=== PATIENT | male | born 1960 | race Caucasian/White ===

== ENCOUNTER 2018-03-12 01:57 | Inpatient (IN) | payer SELFPAY ==
[~2018-03-12] VITALS: Ht 185.4 cm; Wt 80.2 kg
[~2018-03-12 01:57] MED LIST: AMLO5 PO; AMOCLA500 PO; ASPI325 PO; BENZ100A PO; BUPR75 PO; CALC.25 PO; Esgic Tablet1 EACH PO; FURO20 PO; GABA100 PO; Glucagon Emergen1 MG IJ; HUMALOG INSULIN PUMP; HYDACE5 PO; HYDCHL12.5 PO; Humalog100 UNIT/1; INSDET100 SC; INSR10I SC; INSULANI; INSULANI SC; INSULANPEN SC; LISHYD2025 PO; LISI5; LORA1 PO; LOSA25 PO; LOSARTAN POTAS100 MG PO; METH5; METO25 PO; METO5A PO; NIFE60ER PO; OMEP20ER PO; Omeprazole20 M1; PANT40 PO; TRAM50 PO; Vitamin D2000 UNIT PO; Zofran Odt4 MG SL; [UNRECOGNIZED DRUG - SUPPLY] MC
[2018-03-12] MEDS ORDERED: ATOR40TA PO (02:25)
[2018-03-12] MEDS ORDERED: CHOL10002 PO (02:26)
[2018-03-12] MEDS ORDERED: CLOP75 PO (02:26)
[2018-03-12] MEDS ORDERED: FURO20 PO (02:27)
[2018-03-12] MEDS ORDERED: ERGO400 PO (02:27)
[2018-03-12] MEDS ORDERED: Novolog100 UNIT/1 UD (02:28)
[2018-03-12] MEDS ORDERED: LOSA50 PO (02:28)
[2018-03-12] MEDS ORDERED: MECL12.5 PO (02:28)
[2018-03-12] MEDS ORDERED: ONDA4ODT MM (02:29)
[2018-03-12] MEDS ORDERED: NIFE60ER PO (02:29)
[2018-03-12] MEDS ORDERED: METO25 PO (02:29)
[2018-03-12] MEDS ORDERED: PANT40 PO (02:30)
[2018-03-12] MEDS ORDERED: TRAM50 PO (02:30)
[2018-03-12 02:32] LABS: BASOPHILS ABSOLUTE AUTO 0.01 K/mm3 (0.00-0.23); BASOPHILS PERCENT AUTO 0 % (0-2); EOSINOPHILS ABSOLUTE AUTO 0.02 K/mm3 (0.00-0.68); EOSINOPHILS PERCENT AUTO 0 % (0-6); Hematocrit 25.2 % (37.0-53.0); Hemoglobin 8.4 g/dL (13.5-17.5); IMMATURE GRAN ABSOLUTE AUTO 0.04 K/mm3 (0.00-0.10); IMMATURE GRAN PERCENT AUTO 1 % (0-1); LYMPHOCYTES ABSOLUTE AUTO 0.54 K/mm3 (0.84-5.20); LYMPHOCYTES PERCENT AUTO 8 % (21-46); MONOCYTES ABSOLUTE AUTO 0.39 K/mm3 (0.16-1.47); MONOCYTES PERCENT AUTO 6 % (4-13); Mean Corpuscular HGB 30.8 pg (26.0-34.0); Mean Corpuscular HGB Conc 33.3 g/dL (31.5-36.5); Mean Corpuscular Volume 92 fL (80-100); NEUTROPHILS ABSOLUTE AUTO 5.55 K/mm3 (1.96-9.15); NEUTROPHILS PERCENT AUTO 85 % (41-73); Platelet Count 245 K/mm3 (150-400); RDW Coefficient Variation 13.7 % (11.7-14.2); RDW Standard Deviation 46.3 fL (35.1-46.3); Red Blood Cell Count 2.73 M/mm3 (4.30-5.90); White Blood Cell Count 6.55 K/mm3 (4.00-11.30)
[2018-03-12 02:55] LABS: Alanine Aminotransfer (ALT/SGP 39 U/L (12-78); Albumin, Blood 2.7 g/dL (3.4-5.0); Albumin/Globulin Ratio 0.8 (0.8-1.8); Alk Phos 176 U/L (50-136); Anion Gap 19 mmol/L (6-16); Aspartate Aminotrans (AST/SGOT 36 U/L (12-37); Bilirubin, Total 0.4 mg/dL (0.1-1.0); Blood Urea Nitrogen 69 mg/dL (8-24); Bun/Creatinine Ratio 19.5 (12.0-20.0); CO2, Blood 15 mmol/L (21-32); Calcium, Blood 7.3 mg/dL (8.5-10.1); Chloride, Blood 92 mmol/L (98-108); Creatinine, Blood 3.53 mg/dL (0.60-1.20); Globulin, Blood 3.3 g/dL (2.2-4.0); Glomerular Filtration Rate 19 (60-); Glucose, Blood 1087 mg/dL (70-99); Potassium, Blood 5.1 mmol/L (3.5-5.5); Sodium, Blood 126 mmol/L (136-145)
[2018-03-12 03:46] LABS: PCO2 Venous 36.1 mmHg (38-42); PO2 Venous 85.4 mmHg (38-42); pH Blood Venous 7.23 (7.34-7.37)
[2018-03-12 03:47] LABS: Base Excess Venous -12.4 mmol/L; Bicarbonate Venous 15.3 mmol/L (24.0-30.0)
[2018-03-12 04:02] LABS: Phosphorus, Blood 3.4 mg/dL (2.5-4.9); Troponin I <0.015 ng/mL (0.000-0.040)
[2018-03-12 05:49] LABS: Potassium, Blood 4.7 mmol/L (3.5-5.5)
[2018-03-12 06:25] LABS: Potassium, Blood 4.6 mmol/L (3.5-5.5)
[2018-03-12 06:35] LABS: Glucose, Blood 800 mg/dL (70-99)
[2018-03-12 07:17] LABS: Glucose, Blood 896 mg/dL (70-99)
[2018-03-12 07:58] LABS: Glucose, Blood 740 mg/dL (70-99)
[2018-03-12 09:06] LABS: Potassium, Blood 4.2 mmol/L (3.5-5.5)
[2018-03-12 09:30] LABS: Glucose, Blood 669 mg/dL (70-99)
[2018-03-12 11:16] LABS: Potassium, Blood 3.9 mmol/L (3.5-5.5)
[2018-03-12 11:24] LABS: Glucose, Blood 598 mg/dL (70-99)
[2018-03-12 15:05] LABS: Bun/Creatinine Ratio 18.2 (12.0-20.0); Calcium, Blood 7.3 mg/dL (8.5-10.1); Creatinine, Blood 3.35 mg/dL (0.60-1.20)
[2018-03-12 17:59] LABS: Creatinine, Urine Random 34.1 mg/dL (27.00-270.00); Protein, Urine Random 183.3 mg/dL (0.0-11.9)
[2018-03-12 18:06] LABS: Albumin, Blood 2.1 g/dL (3.4-5.0); Anion Gap 10 mmol/L (6-16); Blood Urea Nitrogen 58 mg/dL (8-24); Bun/Creatinine Ratio 17.5 (12.0-20.0); CO2, Blood 21 mmol/L (21-32); Calcium, Blood 7.5 mg/dL (8.5-10.1); Chloride, Blood 111 mmol/L (98-108); Creatinine, Blood 3.32 mg/dL (0.60-1.20); Glomerular Filtration Rate 21 (60-); Glucose, Blood 151 mg/dL (70-99); Potassium, Blood 3.8 mmol/L (3.5-5.5); Sodium, Blood 142 mmol/L (136-145)
[2018-03-13 04:27] LABS: Bicarbonate Venous 21.1 mmol/L (24.0-30.0); PCO2 Venous 38.4 mmHg (38-42); PO2 Venous 40.3 mmHg (38-42); pH Blood Venous 7.36 (7.34-7.37)
[2018-03-13 05:13] LABS: BASOPHILS ABSOLUTE AUTO 0.03 K/mm3 (0.00-0.23); BASOPHILS PERCENT AUTO 0 % (0-2); EOSINOPHILS ABSOLUTE AUTO 0.37 K/mm3 (0.00-0.68); EOSINOPHILS PERCENT AUTO 4 % (0-6); Hematocrit 21.6 % (37.0-53.0); Hemoglobin 7.4 g/dL (13.5-17.5); IMMATURE GRAN ABSOLUTE AUTO 0.04 K/mm3 (0.00-0.10); IMMATURE GRAN PERCENT AUTO 0 % (0-1); LYMPHOCYTES ABSOLUTE AUTO 2.35 K/mm3 (0.84-5.20); LYMPHOCYTES PERCENT AUTO 26 % (21-46); MONOCYTES PERCENT AUTO 8 % (4-13); Mean Corpuscular HGB 29.8 pg (26.0-34.0); Mean Corpuscular HGB Conc 34.3 g/dL (31.5-36.5); Mean Platelet Volume 10.6 fL (9.1-12.4); NEUTROPHILS ABSOLUTE AUTO 5.67 K/mm3 (1.96-9.15); NEUTROPHILS PERCENT AUTO 62 % (41-73); Platelet Count 256 K/mm3 (150-400); RDW Coefficient Variation 14.2 % (11.7-14.2); RDW Standard Deviation 44.5 fL (35.1-46.3); Red Blood Cell Count 2.48 M/mm3 (4.30-5.90); White Blood Cell Count 9.16 K/mm3 (4.00-11.30)
[2018-03-13 05:15] LABS: Mean Corpuscular Volume 87 fL (80-100)
[2018-03-13 05:32] LABS: Anion Gap 8 mmol/L (6-16); Blood Urea Nitrogen 54 mg/dL (8-24); Bun/Creatinine Ratio 16.6 (12.0-20.0); CO2, Blood 22 mmol/L (21-32); Calcium, Blood 7.4 mg/dL (8.5-10.1); Chloride, Blood 112 mmol/L (98-108); Creatinine, Blood 3.26 mg/dL (0.60-1.20); Glomerular Filtration Rate 21 (60-); Glucose, Blood 183 mg/dL (70-99); Magnesium, Blood 1.6 mg/dL (1.6-2.4); Phosphorus, Blood 3.1 mg/dL (2.5-4.9); Potassium, Blood 4.2 mmol/L (3.5-5.5); Sodium, Blood 142 mmol/L (136-145)
[2018-03-13 11:21] LABS: Percent Saturation 24.5 % (20.0-50.0)
[2018-03-14 04:58] LABS: BASOPHILS ABSOLUTE AUTO 0.02 K/mm3 (0.00-0.23); BASOPHILS PERCENT AUTO 0 % (0-2); EOSINOPHILS ABSOLUTE AUTO 0.45 K/mm3 (0.00-0.68); EOSINOPHILS PERCENT AUTO 8 % (0-6); Hematocrit 23.1 % (37.0-53.0); IMMATURE GRAN ABSOLUTE AUTO 0.01 K/mm3 (0.00-0.10); IMMATURE GRAN PERCENT AUTO 0 % (0-1); LYMPHOCYTES ABSOLUTE AUTO 1.86 K/mm3 (0.84-5.20); LYMPHOCYTES PERCENT AUTO 32 % (21-46); MONOCYTES ABSOLUTE AUTO 0.56 K/mm3 (0.16-1.47); MONOCYTES PERCENT AUTO 10 % (4-13); Mean Corpuscular HGB 30.1 pg (26.0-34.0); Mean Corpuscular HGB Conc 34.6 g/dL (31.5-36.5); Mean Corpuscular Volume 87 fL (80-100); Mean Platelet Volume 10.3 fL (9.1-12.4); NEUTROPHILS ABSOLUTE AUTO 2.91 K/mm3 (1.96-9.15); NEUTROPHILS PERCENT AUTO 50 % (41-73); Platelet Count 239 K/mm3 (150-400); RDW Coefficient Variation 14.5 % (11.7-14.2); RDW Standard Deviation 46.1 fL (35.1-46.3); Red Blood Cell Count 2.66 M/mm3 (4.30-5.90); White Blood Cell Count 5.81 K/mm3 (4.00-11.30)
[2018-03-14 05:32] LABS: Bun/Creatinine Ratio 15.2 (12.0-20.0); Calcium, Blood 7.4 mg/dL (8.5-10.1); Creatinine, Blood 2.7 mg/dL (0.60-1.20); Potassium, Blood 3.9 mmol/L (3.5-5.5)
[2018-03-14] MEDS ORDERED: INSULANPEN SC (13:09)
[2018-03-14] MEDS ORDERED: Prozac20 MG PO (13:10)
[2018-03-14] MEDS ORDERED: HUMALOG JU100 UNIT/1 SC (13:11)
[2018-03-14] MEDS ORDERED: TAMS.4ER PO (13:11)
[2018-03-14 15:11] LABS: Protein, Urine Quantitative 354.2 mg/dL (0.0-11.9)
[2018-03-18 15:09] LABS: A/G RATIO 1.4 (0.7-1.7); ALBUMIN 2.5 g/dL (2.9-4.4); ALPHA-1-GLOBULIN 0.1 g/dL (0.0-0.4); ALPHA-2-GLOBULIN 0.4 g/dL (0.4-1.0); BETA GLOBULIN 0.6 g/dL (0.7-1.3); GAMMA GLOBULIN 0.8 g/dL (0.4-1.8); GLOBULIN, TOTAL 1.9 g/dL (2.2-3.9); IMMUNOGLOBULIN A, QN, SERUM 117 mg/dL (90-386); IMMUNOGLOBULIN G, QN, SERUM 835 mg/dL (700-1600); IMMUNOGLOBULIN M, QN, SERUM 64 mg/dL (20-172); M-SPIKE Not Observed g/dL (Not Observed); PROTEIN, TOTAL, SERUM 4.4 g/dL (6.0-8.5)
== END 2018-03-14 15:53 | disposition home or self-care (01) | DRG 919 ==
LOC: ER 01:57 → ICUW 01:58 → ICUE 01:58 → MEDS 03-13 17:19 → ENPENDDIS 03-14 12:30 → MEDS 03-14 15:53
PROVIDERS: Emergency Medicine; Internal Medicine
DX: T85.694A Other mechanical complication of insulin pump, initial encounter (principal); E10.10 Type 1 diabetes mellitus with ketoacidosis without coma; N17.9 Acute kidney failure, unspecified; I12.0 Hypertensive chronic kidney disease with stage 5 chronic kidney disease or end stage renal disease; E87.1 Hypo-osmolality and hyponatremia; N18.5 Chronic kidney disease, stage 5; N13.30 Unspecified hydronephrosis; E11.22 Type 2 diabetes mellitus with diabetic chronic kidney disease; D63.8 Anemia in other chronic diseases classified elsewhere; E55.9 Vitamin D deficiency, unspecified; Z91.19 Patient's noncompliance with other medical treatment and regimen; R33.9 Retention of urine, unspecified; Z86.73 Personal history of transient ischemic attack (TIA), and cerebral infarction without residual deficits; F32.9 Major depressive disorder, single episode, unspecified; E87.5 Hyperkalemia; K21.9 Gastro-esophageal reflux disease without esophagitis; N40.0 Benign prostatic hyperplasia without lower urinary tract symptoms
CPT/HCPCS: 36415; 51702; 76770; 80048; 80051; 80053; 80069; 82010; 82306; 82570; 82607; 82728; 82746; 82784; 82803; 82947; 83540; 83550; 83735; 83970; 84100; 84156; 84165; 84484; 85025; 86334; 93005; 93010; 96360; 99285-25; C9113; J0881; J1815; J7030; J7042

== ENCOUNTER 2018-08-26 10:22 | Inpatient (IN) | payer OTHER ==
[~2018-08-26] VITALS: Ht 185.4 cm; Wt 76.1 kg
[~2018-08-26 10:22] MED LIST changes: +ATOR40TA PO; +CHOL10002 PO; +CLOP75 PO; +ERGO400 PO; +HUMALOG JU100 UNIT/1 SC; +LOSA50 PO; +MECL12.5 PO; +Novolog100 UNIT/1 UD; +ONDA4ODT MM; +Prozac20 MG PO; +TAMS.4ER PO
[2018-08-26] MEDS ORDERED: FURO20 PO (10:38)
[2018-08-26 11:00] LABS: Calcium, Ionized (POC) 1.06 mmol/L (1.10-1.46); Chloride (POC) 110 mmol/L (98-108); Creatinine (POC) 3.8 mg/dL (0.8-1.3); Glucose (ISTAT POC) 118 mg/dL (70-99); Hemoglobin (POC) 9.5 g/dL (13.5-17.5); Sodium (POC) 141 mmol/L (135-148); Total CO2 (POC) 23 mmol/L (21-32)
[2018-08-26] MEDS ORDERED: Ferrous Sulfat325 M2 PO (11:01)
[2018-08-26 13:19] LABS: Hematocrit 29.2 % (37.0-53.0); Hemoglobin 9.5 g/dL (13.5-17.5); Mean Corpuscular HGB 30.8 pg (26.0-34.0); Mean Corpuscular HGB Conc 32.5 g/dL (31.5-36.5); Mean Corpuscular Volume 95 fL (80-100); Platelet Count 218 K/mm3 (150-400); RDW Coefficient Variation 15.4 % (11.7-14.2); RDW Standard Deviation 52.8 fL (35.1-46.3); Red Blood Cell Count 3.08 M/mm3 (4.30-5.90); White Blood Cell Count 5.94 K/mm3 (4.00-11.30)
[2018-08-26 13:41] LABS: Albumin, Blood 2.8 g/dL (3.4-5.0); Anion Gap 6 mmol/L (6-16); Blood Urea Nitrogen 44 mg/dL (8-24); Bun/Creatinine Ratio 11.3 (12.0-20.0); CO2, Blood 24 mmol/L (21-32); Calcium, Blood 7.6 mg/dL (8.5-10.1); Chloride, Blood 114 mmol/L (98-108); Glomerular Filtration Rate 17 (60-); Glucose, Blood 124 mg/dL (70-99); Phosphorus, Blood 3.1 mg/dL (2.5-4.9); Potassium, Blood 4.8 mmol/L (3.5-5.5); Sodium, Blood 144 mmol/L (136-145)
[2018-08-26 14:15] LABS: BASOPHILS PERCENT MAN 0 % (0-2); EOSINOPHILS PERCENT MAN 0 % (0-6); LYMPHOCYTES ABSOLUTE MAN 0.35 K/mm3 (0.84-5.20); LYMPHOCYTES PERCENT MAN 6 % (21-46); MONOCYTES ABSOLUTE MAN 0.23 K/mm3 (0.16-1.47); MONOCYTES PERCENT MAN 4 % (4-13); NEUTROPHILS ABSOLUTE MAN 5.34 K/mm3 (1.96-9.15); SEG NEUTROPHILS PERCENT MAN 90 % (41-73); TOTAL CELLS COUNTED 100
--- NOTE | 2018-08-26 18:18 | NUR ---
SHIFT SUMMARY LOY ARRIVED AT 1245 FROM ED. VSS, SLIGHT TEMP AT 100.3 WITH TYLENOL GIVEN. PT DENIES PAIN BUT SAYS HIS BODY ACHES ALL OVER A BIT. MIVF RUNNING, DR ALARCON CAME TO BEDSIDE. RENAL ULTRASOUND COMPLETED. INDEPENDENT TO BR. FAMILY VISITED. IMPLANTED CBG AND INSULIN PUMP, PER DR BAHENA, WE DON'T NEED TO CHECK CBGS OR DOCUMENT HOW MUCH INSULIN HE DELIVERS WITH HIS MEALS. WCTM
[2018-08-27 05:16] LABS: Hematocrit 29.7 % (37.0-53.0); Hemoglobin 9.6 g/dL (13.5-17.5); Mean Corpuscular HGB 30.9 pg (26.0-34.0); Mean Corpuscular HGB Conc 32.3 g/dL (31.5-36.5); Mean Corpuscular Volume 96 fL (80-100); Platelet Count 194 K/mm3 (150-400); RDW Coefficient Variation 15.2 % (11.7-14.2); RDW Standard Deviation 52.8 fL (35.1-46.3); Red Blood Cell Count 3.11 M/mm3 (4.30-5.90); White Blood Cell Count 4.67 K/mm3 (4.00-11.30)
[2018-08-27 05:40] LABS: Magnesium, Blood 1.9 mg/dL (1.6-2.4)
[2018-08-27 05:44] LABS: Albumin, Blood 2.7 g/dL (3.4-5.0); Anion Gap 4 mmol/L (6-16); Blood Urea Nitrogen 49 mg/dL (8-24); Bun/Creatinine Ratio 11.6 (12.0-20.0); CO2, Blood 25 mmol/L (21-32); Calcium, Blood 7.5 mg/dL (8.5-10.1); Chloride, Blood 114 mmol/L (98-108); Creatinine, Blood 4.24 mg/dL (0.60-1.20); Glomerular Filtration Rate 15 (60-); Glucose, Blood 75 mg/dL (70-99); Phosphorus, Blood 2.7 mg/dL (2.5-4.9); Potassium, Blood 5.2 mmol/L (3.5-5.5); Sodium, Blood 143 mmol/L (136-145)
--- NOTE | 2018-08-27 07:21 | NUR ---
SHIFT SUMMARY: PT A&O X 4, INDEPENDENT IN ROOM. C/O BODY ACHES, COUGH, AND CONGESTION. DENIES N/V, SOB. PT IS MANAGING OWN INSULIN AND CBG c IMPLANTED PUMP PER DR. HERNANDEZ VERBAL CONSENT. NS RUNNING @ 100 ML/HR, PT IS VOIDING WNL. C/O DECREASE APPETITE AND IS EATING JUST JELL-O TONIGHT. WILL CONT TO MONITOR AND PROVIDE CARE UNTIL PRESUMED BY ONCOMING RN.
[2018-08-28 05:06] LABS: BASOPHILS ABSOLUTE AUTO 0.02 K/mm3 (0.00-0.23); BASOPHILS PERCENT AUTO 1 % (0-2); EOSINOPHILS ABSOLUTE AUTO 0.01 K/mm3 (0.00-0.68); EOSINOPHILS PERCENT AUTO 0 % (0-6); Hematocrit 27.6 % (37.0-53.0); Hemoglobin 8.8 g/dL (13.5-17.5); IMMATURE GRAN PERCENT AUTO 0 % (0-1); LYMPHOCYTES ABSOLUTE AUTO 1.71 K/mm3 (0.84-5.20); LYMPHOCYTES PERCENT AUTO 50 % (21-46); MONOCYTES ABSOLUTE AUTO 0.85 K/mm3 (0.16-1.47); MONOCYTES PERCENT AUTO 25 % (4-13); Mean Corpuscular HGB Conc 31.9 g/dL (31.5-36.5); Mean Corpuscular Volume 94 fL (80-100); NEUTROPHILS ABSOLUTE AUTO 0.83 K/mm3 (1.96-9.15); NEUTROPHILS PERCENT AUTO 24 % (41-73); Platelet Count 162 K/mm3 (150-400); RDW Coefficient Variation 15.2 % (11.7-14.2); RDW Standard Deviation 52.7 fL (35.1-46.3); Red Blood Cell Count 2.93 M/mm3 (4.30-5.90); White Blood Cell Count 3.42 K/mm3 (4.00-11.30)
[2018-08-28 05:30] LABS: Albumin, Blood 2.2 g/dL (3.4-5.0); Anion Gap 6 mmol/L (6-16); Blood Urea Nitrogen 52 mg/dL (8-24); Bun/Creatinine Ratio 12.7 (12.0-20.0); CO2, Blood 22 mmol/L (21-32); Calcium, Blood 7.1 mg/dL (8.5-10.1); Chloride, Blood 112 mmol/L (98-108); Glomerular Filtration Rate 16 (60-); Glucose, Blood 138 mg/dL (70-99); Magnesium, Blood 1.9 mg/dL (1.6-2.4); Phosphorus, Blood 4.1 mg/dL (2.5-4.9); Potassium, Blood 4.7 mmol/L (3.5-5.5); Sodium, Blood 140 mmol/L (136-145)
--- NOTE | 2018-08-28 06:01 | NUR ---
HYPERTENSION PT HAS HIGH BP WITH THIS AM VITAL SIGNS OF 187/97. CALLED DOC FOR PRN BP MED. DOC ORDERED IV HYDRALAZINE 10MG Q6H PRN FOR SBP >160. ADMINISTERED TO PT. RECHECK THIRTY MINUTES LATER REVEALS BP 142/78.
--- NOTE | 2018-08-28 07:38 | NUR ---
SHIFT SUMMARY: PT HAS HIGH TEMP THIS SHIFT OF 101.3, RESPONDS WELL TO 650 MG PRN TYLENOL. TEMP LOWERS TO 98.3. [address], ALL URINE COLLECTED APPROPRIATELY SINCE 08/27/18 @ 1030. PT EXPERIENCES HIGH BP THIS SHIFT, PRN HYDRALAZINE ORDERED (SEE PRIOR NOTE). LAST BP DOWN TO 142/78. RENAL LABS THIS AM SHOW LITTLE TO NO IMPROVEMENT IN RENAL FUNCTION. NS @ 125 ML/HR IN 20G IN R. A/C CONT. PT MANAGING OWN INSULIN c IMPLANTED PUMP, PER DR. HERNANDEZ ORDERS. DENIES PAIN, DENIES N/V, LS DIM, TOLERATES RA. INDEPENDENT IN ROOM, PREFERS TO BE LEFT ALONE/WITHDRAWN. NO OTHER ACUTE CHANGES TO REPORT. WILL CONT TO MONITOR AND PROVIDE CARE UNTIL PRESUMED BY ONCOMING RN.
--- NOTE | 2018-08-28 18:36 | NUR ---
SHIFT SUMMARY PT HAD NO ACUTE CHANGES THIS SHIFT, NO COMPLAINTS OF ANY KIND. 24 HR URINE WAS RESTARTED THIS SHIFT D/T 2 VOIDS DUMPED, WILL COMPLETE 08/29 @ 1400. PT IS BEDRESTING AT THIS TIME, WILL CONT TO MONITOR UNTIL REPORT GIVEN TO TYLER RN.
--- NOTE | 2018-08-29 05:18 | NUR ---
SHIFT SUMMARY A/O X4, ABLE TO MAKE NEEDS KNOWN. COOPERATIVE WITH CARE. CALLS AND ANSWERS QUESTIONS APPROPRIATELY. NO C/O PAIN/DISCOMFORT. C/O NAUSEA; MEDICATED PER EMAR. SLIGHT TEMPERATURE THIS AM @ 99.3, BUT APPEARS ON TREND WITH PREVIOUS. HYPERTENSION NOTED THIS AM; WILL ADMINISTER PRN HYDRALAZINE. REMAINS INDEPENDENT IN ROOM. 24 HOUR URINE SAMPLE STILL COLLECTING. REMAINS ON IV FLUIDS NS 100 ML/HR WITHOUT COMPLICATION. NO OTHER ACUTE CHANGES NOTED. BED IN LOWEST POSITION. CALL LIGHT AND BELONGINGS WITHIN REACH. WCTM. REPORT TO ONCOMING RN.
[2018-08-29 05:21] LABS: Hematocrit 28.6 % (37.0-53.0); Hemoglobin 9.2 g/dL (13.5-17.5)
[2018-08-29 05:44] LABS: Albumin, Blood 2.2 g/dL (3.4-5.0); Anion Gap 5 mmol/L (6-16); Blood Urea Nitrogen 50 mg/dL (8-24); Bun/Creatinine Ratio 13.2 (12.0-20.0); CO2, Blood 22 mmol/L (21-32); Calcium, Blood 6.9 mg/dL (8.5-10.1); Chloride, Blood 111 mmol/L (98-108); Glomerular Filtration Rate 18 (60-); Glucose, Blood 114 mg/dL (70-99); Magnesium, Blood 1.7 mg/dL (1.6-2.4); Phosphorus, Blood 3.8 mg/dL (2.5-4.9); Potassium, Blood 4.9 mmol/L (3.5-5.5); Sodium, Blood 138 mmol/L (136-145)
--- NOTE | 2018-08-29 09:25 | NUR ---
IV SITE PT'S IV TO THE R AC IS A FIELD START, PT DECLINED TO HAVE A NEW ONE PLACED AT THIS TIME, PT REPORTS NAUSEA AND GENERAL MALAISE RELATED TO THE FLU
[2018-08-29 14:34] LABS: Protein, Urine Quantitative 354.7 mg/dL (0.0-11.9)
--- NOTE | 2018-08-29 18:13 | NUR ---
SUMMARY PT SITTING UP IN BED EATING HIS DINNER, PT HAS BEEN INDEPENDENT IN THE ROOM, IS PLEASANT AND COOPERATIVE WITH CARE, HAS DECLINED ANY TYLENOL OR OTHER PAIN MEDICATION, REQUESTS THE DOOR BE SHUT FOR QUIET, SPOUSE HAS BEEN IN TO VISIT, NO ACUTE CHANGES, WILL CONT TO MONITOR
[2018-08-30 05:26] LABS: Albumin, Blood 2.1 g/dL (3.4-5.0); Anion Gap 9 mmol/L (6-16); Blood Urea Nitrogen 49 mg/dL (8-24); Bun/Creatinine Ratio 12.9 (12.0-20.0); CO2, Blood 18 mmol/L (21-32); Calcium, Blood 6.8 mg/dL (8.5-10.1); Chloride, Blood 112 mmol/L (98-108); Glomerular Filtration Rate 18 (60-); Glucose, Blood 158 mg/dL (70-99); Phosphorus, Blood 3.8 mg/dL (2.5-4.9); Potassium, Blood 4.9 mmol/L (3.5-5.5); Sodium, Blood 139 mmol/L (136-145)
--- NOTE | 2018-08-30 05:27 | NUR ---
SHIFT SUMMARY A/O X4, ABLE TO MAKE NEEDS KNOWN. COOPERATIVE WITH CARE. CALLS AND ANSWERS QUESTIONS APPROPRIATELY. NO C/O PAIN/DISCOMFORT. NO N/V/D NOTED. HYPERTENSIVE THIS AM; WILL MEDICATED PER EMAR. REMAINS INDEPENDENT IN ROOM. APPEARED TO REST MUCH OF SHIFT. NO OTHER ACUTE CHANGES NOTED OVERNIGHT. BED IN LOWEST POSITION. CALL LIGHT AND BELONGINGS WITHIN REACH. WCTM. REPORT TO ONCOMING RN.
--- NOTE | 2018-08-30 17:28 | NUR ---
SUMMARY PT RESTING QUIETLY IN BED, WAKES EASILY, INDEPENDENT IN THE ROOM, SPOUSE HAS BEEN IN TO VISIT AND REPORTS THE PT'S FLAT AFFECT IS HIS BASELINE, PT HAS DECLINED ANY PAIN MEDICATION T/O THE DAY, VSS, NO ACUTE CHANGES, WILL CONTINUE TO MONITOR
--- NOTE | 2018-08-31 08:04 | NUR ---
Rn summary: Patient is alert and oriented. Pt is pale and states he just doesnt feel well. Pt has insulin pump he takes care of. Pt had crackles in R base. Pt states he feels bloated this evening. Active bowel tones, states he gets some on and off again nausia. Pt was able to rest on and off. He has a cough that is harsh but non productive. Cough med given but he states it is ineffective. Pt is up independantly in room. IV fluids continue. Pt is pleasant but quiet. Call light in reach. Will continue to monitor, report to day sift SIM Cohen.
[2018-08-31 11:22] LABS: Bun/Creatinine Ratio 12.6 (12.0-20.0); Creatinine, Blood 3.72 mg/dL (0.60-1.20); Potassium, Blood 4.9 mmol/L (3.5-5.5)
[2018-08-31] MEDS ORDERED: ROBITUSSIN COU237 ML PO (15:00)
[2018-08-31] MEDS ORDERED: AZIT500 PO (15:01)
[2018-08-31] MEDS ORDERED: HYDR10 PO (15:01)
--- NOTE | 2018-08-31 15:24 | NUR ---
PATIENT DISCHARGE THE PATIENT WAS DISCHARGED HOME WITH HIS , AFTER DISCHARGE INSTRUCTIONS WERE GIVEN TO THE PATIENT. THE PATIENT WAS INSTRUCTED TO IT DESKTOP SUPPORT TECHNICIAN AND TAKE THE PRESCRIPTIONS THAT WERE AT THE [facility] FOR HIM AND TO TAKE THEM DIRECTED. THE IS ALSO TO FOLLOW UP WITH HIS PCP WITHIN TWO WEEKS. THE PATIENT WAS FEELING AND DOING WELL, EATING AND WALKING THE HALLS WITH OUT TROUBLE. WHEN HIS ARRIVED TO PICK HIM UP, SHE WAS COMPLAINING FROM [place] TO THE TIME SHE LEFT THE MENDEZ. THE PATIENT STARTED COUGHING SOON SHE STARTED COMPLAINING.
== END 2018-08-31 15:22 | disposition home or self-care (01) | DRG 684 ==
LOC: ER 10:22 → MEDS 10:23
PROVIDERS: Emergency Medicine; Internal Medicine; Internal Medicine Nephrology; ADMIT Internal Medicine
DX: N17.9 Acute kidney failure, unspecified (principal); E10.22 Type 1 diabetes mellitus with diabetic chronic kidney disease; E10.319 Type 1 diabetes mellitus with unspecified diabetic retinopathy without macular edema; G47.33 Obstructive sleep apnea (adult) (pediatric); N18.4 Chronic kidney disease, stage 4 (severe); D63.1 Anemia in chronic kidney disease; E10.42 Type 1 diabetes mellitus with diabetic polyneuropathy; N25.81 Secondary hyperparathyroidism of renal origin; Z86.73 Personal history of transient ischemic attack (TIA), and cerebral infarction without residual deficits; F32.9 Major depressive disorder, single episode, unspecified; N40.0 Benign prostatic hyperplasia without lower urinary tract symptoms; K21.9 Gastro-esophageal reflux disease without esophagitis; Z96.41 Presence of insulin pump (external) (internal); Z79.02 Long term (current) use of antithrombotics/antiplatelets; J10.1 Influenza due to other identified influenza virus with other respiratory manifestations; E10.51 Type 1 diabetes mellitus with diabetic peripheral angiopathy without gangrene; E88.09 Other disorders of plasma-protein metabolism, not elsewhere classified; E83.51 Hypocalcemia; E86.9 Volume depletion, unspecified; E87.5 Hyperkalemia; J40 Bronchitis, not specified as acute or chronic; I12.9 Hypertensive chronic kidney disease with stage 1 through stage 4 chronic kidney disease, or unspecified chronic kidney disease
CPT/HCPCS: 36415; 71046; 76770; 80047; 80048; 80069; 81050; 82947; 83735; 84156; 85014; 85018; 85025; 85027; 99285; J0360; J0881; J1644; J2405; J7030

== ENCOUNTER 2018-11-27 05:46 | Day surgery (SDC) | payer OTHER ==
[~2018-11-27] VITALS: Ht 185.4 cm; Wt 77.0 kg
[~2018-11-27 05:46] MED LIST changes: +AZIT500 PO; +Ferrous Sulfat325 M2 PO; +HYDR10 PO; +ROBITUSSIN COU237 ML PO
[2018-11-27] MEDS ORDERED: FURO40 PO (06:18)
[2018-11-27] MEDS ORDERED: INSULANPEN (06:19)
== END 2018-11-27 09:50 | disposition home or self-care (01) ==
LOC: MHTC 05:46
DX: I12.0 Hypertensive chronic kidney disease with stage 5 chronic kidney disease or end stage renal disease (principal); E10.22 Type 1 diabetes mellitus with diabetic chronic kidney disease; N18.6 End stage renal disease; D63.1 Anemia in chronic kidney disease; E10.42 Type 1 diabetes mellitus with diabetic polyneuropathy; N40.0 Benign prostatic hyperplasia without lower urinary tract symptoms; F32.9 Major depressive disorder, single episode, unspecified; G47.33 Obstructive sleep apnea (adult) (pediatric); Z86.73 Personal history of transient ischemic attack (TIA), and cerebral infarction without residual deficits; Z79.899 Other long term (current) drug therapy
CPT/HCPCS: 99152; 99153; C1750; C1769; J1644; J2250; J3010; J7030; J7040

== ENCOUNTER 2018-12-10 12:12 | Inpatient (IN) | payer OTHER ==
[~2018-12-10] VITALS: Ht 185.4 cm; Wt 75.8 kg
[~2018-12-10 12:12] MED LIST changes: +FURO40 PO; -HUMALOG JU100 UNIT/1 SC; +INSULANPEN; +Novolog100 UNIT/2; -TAMS.4ER PO
[2018-12-10 14:45] LABS: BASOPHILS ABSOLUTE AUTO 0.03 K/mm3 (0.00-0.23); BASOPHILS PERCENT AUTO 0 % (0-2); EOSINOPHILS ABSOLUTE AUTO 0.39 K/mm3 (0.00-0.68); EOSINOPHILS PERCENT AUTO 4 % (0-6); Hematocrit 30.6 % (37.0-53.0); IMMATURE GRAN ABSOLUTE AUTO 0.04 K/mm3 (0.00-0.10); IMMATURE GRAN PERCENT AUTO 0 % (0-1); LYMPHOCYTES ABSOLUTE AUTO 2.62 K/mm3 (0.84-5.20); LYMPHOCYTES PERCENT AUTO 26 % (21-46); MONOCYTES ABSOLUTE AUTO 1.07 K/mm3 (0.16-1.47); MONOCYTES PERCENT AUTO 11 % (4-13); Mean Corpuscular HGB 30.3 pg (26.0-34.0); Mean Corpuscular HGB Conc 32.7 g/dL (31.5-36.5); Mean Corpuscular Volume 93 fL (80-100); NEUTROPHILS ABSOLUTE AUTO 5.92 K/mm3 (1.96-9.15); NEUTROPHILS PERCENT AUTO 59 % (41-73); Platelet Count 255 K/mm3 (150-400); RDW Coefficient Variation 13.8 % (11.7-14.2); White Blood Cell Count 10.07 K/mm3 (4.00-11.30)
[2018-12-10 15:01] LABS: Bun/Creatinine Ratio 6.6 (12.0-20.0); Calcium, Blood 7.7 mg/dL (8.5-10.1); Creatinine, Blood 3.65 mg/dL (0.60-1.20); Potassium, Blood 4.4 mmol/L (3.5-5.5)
[2018-12-10] MEDS ORDERED: TAMS.4ER PO (17:06)
[2018-12-10] MEDS ORDERED: METO25 PO (18:04)
--- NOTE | 2018-12-10 19:30 | NUR ---
ASSUMED CARE ASSUMED PT CARE AT APPROXIMATELY 1900. PT CURRENTLY RESTING IN BED WITH FAMILY AT BEDSIDE. CURRENTLY AOX4, VSS. LUNG SOUNDS CLEAR. POSTERIOR SPLINT NOTED TO R LOWER EXTREMITY WITH MELVINA WRAP, TOES EXPOSED, PEDAL PULSE PALPATED UNDER MELVINA WRAP, CAP REFILL WNL, TOES WARM TO THE TOUCH. HEART RHYTHM NSR WITH RATE IN THE 70'S PER TELEMETRY. PT STATES THAT INSULIN PUMP HAS BEEN ON STANDBY DUE TO HYPOGLYCEMIA THROUGHOUT THE DAY. CURRENT BLOOD GLUCOSE OF 312 MG/DL. PT AND FAMILY EXPRESSING CONCERN ABOUT CURRENT STATUS AND LACK OF COMMUNICATION ABOUT SURGICAL PROCEDURE AND CONSULT WITH NEPHROLOGY. NO ADMITTING PROVIDER NOTE AVAILABLE AT THIS TIME. FAMILY AND PATIENT UPDATED ON KNOWN INFORMATION FROM ER PHYSICIAN NOTE AND EXPRESSED THAT SURGEON AND HOSPITALIST WOULD BE CONTACTED FOR FURTHER ORDERS. WILL CONTINUE WITH ASSESSMENT AND MONITORING. PT EDUCATED ON CALLING FOR ASSISTANCE AND REMAINING ON BEDREST AT THIS TIME DUE TO INJURY AND RISK OF FALLING. BED IN LOW POSITION, CALL LIGHT IN REACH.
--- NOTE | 2018-12-10 19:48 | NUR ---
ARRIVAL TO UNIT Pt arrived to unit at 1735. Telephone report recieved from Gilberto MONTEMAYOR. Pt slid self from ED gurney to PCU bed. Tolerated activity well. VSS. Since arrival to unit, pt has denied pain. Pt is alert and oriented. Pt has insulin pump that states current blood sugar levels and provides insulin to pt, therefore subcutaneous insulin ordered was not administered. Pt has NPO orders, however pt is not on schedule for surgery per nursing supervisor painting shipyard, Harlan MONTEMAYOR. This RN provided pt with jello; he did not want anything else to eat. Pt's right lower extremity is dressed from foot to midcalf. This dressing has not been removed and the skin beneath has not been assessed. Color, sensation, capillary refill equal to bilateral toes. Pt has dialysis catheter to right chest wall. Pt receives hemodialysis 3x per week. Pt sees Dr Potter routinely. This information was passed to night RN to assume care, Sheri, who states plan to obtain nephrology consultation. NS at 50 mL/hr not started at this time, as pt is hypertensive, able to take fluids PO, and is a hemodialysis patient. Bed in lowest position. Call light in reach. Bed alarm applied. Pt denies need at this time.
--- NOTE | 2018-12-10 20:11 | NUR ---
BLOOD GLUCOSE PT WITH INSULIN PUMP READING 312 MG/DL. PT TURNED INSULIN PUMP BACK ON AFTER BEING ON STANDBY WITH HYPOGLYCEMIC EPISODES WHILE NPO. PT REPORTS THAT HE GIVE HIMSELF BOLUS DOSES OF INSULIN FOR COVERAGE. BOLUS DOSE GIVEN OF 3 UNITS REGULAR INSULIN.
--- NOTE | 2018-12-10 22:00 | NUR ---
PROVIDERS CONTACTED PER ER PHYSICIAN NOTE, DR NELSON CONSULTED FOR SURGERY OF R ANKLE. DR CASAREZ CONTACTED AND ORDERS RECEIVED FOR PT TO BE NPO AT MIDNIGHT FOR PROCEDURE TOMORROW. TIME OF PROCEDURE PENDING DR AREVALO CONSULT AND POTENTIAL FOR DIALYSIS PRIOR TO SURGERY. DR CASAREZ REPORTS SHE WILL BE IN TO SEE PATIENT IN MORNING/EARLY AFTERNOON. CHAYA JARQUIN CONTACTED FOR FORMAL SURGICAL CONSULT ORDER. ORDERS ALSO RECEIVED FOR NEPHROLOGY CONSULT FOR POTENTIAL PRE-PROCEDURE DIALYSIS. FLUIDS SPECIFIED TO START AT MIDNIGHT WHEN PT BECOMES NPO @ 50 ML/HR FOR ONE LITER. WILL INPUT ORDERS FROM BOTH PROVIDERS AND CONTINUE WITH MONITORING OF PATIENT.
--- NOTE | 2018-12-11 00:25 | NUR ---
BLOOD GLUCOSE CURRENT BLOOD GLUCOSE OF 284 MG/DL. INSULIN PUMP REMAINS INFUSING WITH BASAL RATE OF 0.5 UNITS PER HOUR. PT GAVE HIMSELF BOLUS DOSE OF 1.24 UNITS FOR COVERAGE. WILL CONTINUE WITH MONITORING.
--- NOTE | 2018-12-11 04:00 | NUR ---
BLOOD GLUCOSE BLOOD GLUCOSE PER AM LABS @0400 IS 161. INSULIN PUMP REMAINS INFUSING AT BASAL RATE OF 0.5 UNITS PER HOUR. WILL CONTINUE TO MONITOR.
[2018-12-11 05:09] LABS: Hematocrit 27.6 % (37.0-53.0)
[2018-12-11 05:28] LABS: Albumin, Blood 2.2 g/dL (3.4-5.0); Anion Gap 3 mmol/L (6-16); Blood Urea Nitrogen 27 mg/dL (8-24); Bun/Creatinine Ratio 6.6 (12.0-20.0); CO2, Blood 32 mmol/L (21-32); Calcium, Blood 7.3 mg/dL (8.5-10.1); Chloride, Blood 101 mmol/L (98-108); Glomerular Filtration Rate 16 (60-); Glucose, Blood 161 mg/dL (70-99); Magnesium, Blood 1.7 mg/dL (1.6-2.4); Phosphorus, Blood 2.8 mg/dL (2.5-4.9); Potassium, Blood 4.4 mmol/L (3.5-5.5); Sodium, Blood 136 mmol/L (136-145)
--- NOTE | 2018-12-11 05:34 | NUR ---
SHIFT SUMMARY- PT HAS REMAINED AOX4 THROUGHOUT SHIFT. VSS. PLEASANT AND COOPERATIVE WITH CARE. PT HAS REMAINED ON BEDREST THROUGHOUT THE NIGHT, SITTING UP AT BEDSIDE TO USE URINAL. PT HAS REMAINED NON-WEIGHT BEARING ON R LEG. PT HAS DENIED PAIN THROUGHOUT THEN NIGHT AND HAS MANAGED BLOOD GLUCOSE VIA INSULIN PUMP. IV FLUIDS STARTED THIS AM @50 ML/HR PER PROVIDER'S INDICATION- SEE PREVIOUS NOTE. PT HAS REMAINED NPO SINCE MIDNIGHT PER DR CASAREZ' VERBAL ORDER. PT HAS SLEPT THROUGHOUT REMAINDER OF NIGHT WITH CPAP IN PLACE. NO OTHER CHANGES NOTED FROM INITIAL ASSESSMENT. WILL CONTINUE TO MONITOR AND REPORT TO ONCOMING SHIFT RN. BED IN LOW POSITION, CALL LIGHT IN REACH.
--- NOTE | 2018-12-11 07:00 | NUR ---
AM GLUCOSE = 91 PER PT'S PUMP/MONITOR. BASAL RATE CONTINUED.
--- NOTE | 2018-12-11 08:48 | NUR ---
NURSING PCU DAYSHFIT: Assumed care of pt at approx 0700. A/O, cooperative w/care. C/O 5/10 pain present in R foot r/t recent R ankle fx, splint and dressing in place. Skin intact, no breakdown noted. Bedrest at this time. Tele in place, NSR, no c/o CP/pressure, HTN prior to a.m. meds, no noted edema. L/S cta t/o, O2 sat mid 90's on RA, denies dyspnea, occ harsh/CELL PHONE REPAIR TECHNICIAN cough. Abd SNT, BT+, intermittent nausea, voiding w/o difficulty though uses meds for retention. PIV x1, NS infusing at 50cc/hr, HD port present in RCW. No s/s of acute distress at this time. Seen by tip bander and surgeon, plan for R ankle repair today. S/O at bedside, plan of care discussed, questions addressed. Pt and s/o deny any current needs, cont to monitor for changes.
--- NOTE | 2018-12-11 09:34 | NUR ---
BLOOD GLUCOSE 60'S, PUMP TURNED OFF BY PT. WILL MONITOR AND ADMINISTER SC INSULIN Q6 INDICATED BY PT'S LEVELS.
--- NOTE | 2018-12-11 11:15 | NUR ---
INTO [facility] VIA BED. PT A&OX3. REPORTS PAIN TO RIGHT ANKLE 11/03. HISTORY AND ALLERGIES REVIEWED. INSULIN PUMP AND CGM REMOVED AT THIS TIME. CBG 71. NPO STATUS CONFIRMED. MELVINA WRAP AND SPLINT IN PLACE TO RIGHT LOWER EXTREMITY/ANKLE.
--- NOTE | 2018-12-11 11:34 | NUR ---
NURSING PCU TRANSFER SUMMARY: No significant changes noted t/o the a.m. Pt xferred to day surgery at approx 1115 via bed. PMD changed pt to surgical status w/tele, bed assignment received, family notified, awaiting telephone report to accepting RN. No s/s of acute distress at time of xfer to surgery.
--- NOTE | 2018-12-11 12:31 | NUR ---
ASSUMED CARE OF PT. NOSIN TO NARES BILATERALLY.
--- NOTE | 2018-12-11 18:14 | NUR ---
PT HAS BEEN STABLE POST OP. RIGHT ANKLE IN SPLING, ELEVATED ON PILLOWS WITH ICE PACK APPLIED. PT HAS CHRONIC NEUROPATHY TO BLE. CIRC WNL. PT BONE PAIN TREATED PRN WITH MORPHINE. NAUSEA X1, REGLAN EFFECTIVE. PT MANAGING OWN INSULIN PUMP AND DOES NOT WANT TO USE SLIDING SCALE OR SCHEDULED INSULIN ORDERED. DISCUSSED WITH MD WHO STATES OK FOR PT TO MANAGE PUMP AND REPORT RESULTS OF CBG AND AMT OF INSULIN GIVEN. PT STARTED ON ADA DIET FOR SINNER. PT DOES NOT VOID. DIALYSIS CATH TO RIGHT CHEST. TELE NSR. CONT BIOX ON FOR HOME CPAP USE. FAMILY AT BEDSIDE, ATTENTIVE.
--- NOTE | 2018-12-11 19:00 | NUR ---
BLOOD SUGAR: PT BLOOD SUGAR 265 PER SELF CHECK. PT WILL ADMINISTER SLIDING SCALE AND CARB COUNT AFTER EATS DINNER.
--- NOTE | 2018-12-11 23:30 | NUR ---
PT MANAGING OWN BLOOD SUGARS USING INSULIN PUMP. REFUSING SLIDING SCALE HUMALOG. PT REPORTS ADMINISTERING 3.2 UNITS FOR BG OF 376 AT THIS TIME.
--- NOTE | 2018-12-12 05:05 | NUR ---
SHIFT SUMMARY: PT POD #1 FOR ORIF OF RIGHT ANKLE. A&O X4, VS WNL. PT FLAT AND WITHDRAWN. SPLINT TO RIGHT LEG, PT REPORTS N/T WHICH IS BASELINE FOR HIM. HE IS ABLE TO WIGGLE HIS TOES, CAP REFIL WNL. NO SWELLING NOTED. BLOOD GLUCOSE CONTROLLED PER PATIENT USING INSULIN PUMP. FLUIDS INFUSING. RESTING MOST OF SHIFT.
--- NOTE | 2018-12-12 06:15 | NUR ---
PT MANAGING BG WITH INSULIN PUMP. PT REPORTS BLOOD SUGAR OF 439 THIS AM. STATES IT IS HIGH BECAUSE THE LINE TO THE INSULIN PUMP WAS IN KNOT. REFUSES BEING COVERED BY HUMALOG SLIDING SCALE. PT IS ADMINISTERING 4.9 UNITS TO HIMSELF AT THIS TIME.
--- NOTE | 2018-12-12 08:50 | NUR ---
DR AREVALO HERE RECENTLY. DR ZALDIVAR HERE NOW. DISCUSSED PT'S STATUS AND MEDICATIONS.
--- NOTE | 2018-12-12 12:42 | NUR ---
PT BACK FROM HAVING DIALYSIS. PT CHECKED OWN CBG 184. PT USING OWN INSULIN PUMP.
--- NOTE | 2018-12-12 19:09 | NUR ---
SHIFT SUMMARY PT EATING AND DRINKING WELL. PT MANAGING OWN INSULIN WITH PT'S PUMP. PT VOIDING. PT HAD DIALYSIS TODAY. PT WAS MED FOR PAIN THIS EVENING. PT REPORTS DR CASAREZ CAME AND SAW PT WHILE HE WAS IN DIALYSIS. FAMILY IN/OUT OF ROOM. PT DID SIT IN CHAIR TODAY.
--- NOTE | 2018-12-13 04:38 | NUR ---
SHIFT SUMMARY: NO ACUTE CHANGES THIS SHIFT. PT RESTING MOST OF SHIFT; USING CPAP T/O NIGHT. REFUSING PAIN MEDICATION. BLOOD SUGARS CONTROLLED BY INSULIN PUMP. PT REFUSING TO BE COVERED BY HOSPITAL INSULIN. SPLINT AND MELVINA WRAP TO RIGHT LEG CDI. LENIN PO.
--- NOTE | 2018-12-13 09:01 | NUR ---
DR ZALDIVAR HERE TO SEE PT.
--- NOTE | 2018-12-13 11:11 | NUR ---
DISCUSSED PT'S STATUS WITH STILL OPERATOR BRANDY AND TECHNICAL TRAINING COORDINATOR.
--- NOTE | 2018-12-13 11:24 | NUR ---
DR AREVALO HERE EARLIER TODAY.
[2018-12-13] MEDS ORDERED: ACET325 PO (16:17)
[2018-12-13] MEDS ORDERED: CLON.1 PO (16:18)
[2018-12-13] MEDS ORDERED: DOCU100 PO (16:18)
[2018-12-13] MEDS ORDERED: GAVILAX17 GM PO (16:19)
[2018-12-13] MEDS ORDERED: ONDA4 PO (16:19)
[2018-12-13] MEDS ORDERED: Norco 5-325 Ta1 EACH PO (16:20)
--- NOTE | 2018-12-13 17:05 | NUR ---
PT REPORTS UNDERSTANDING OF DISCHARGE INSTRUTCTIONS. PT TO GO HOME WITH H.H.. PT BEEN SEEN BY THERAPY AND CLEARED TO GO HOME WITH H.H.. PT EATING AND DRINKING. VOIDING. PT CURRENTLY HAVING DIALYSIS PRIOR TO GOING HOME. SERVICES PROGRAM MANAGER ASSISTED WITH DISCHARGE PLANNING. PT GIVEN SCRIPTS AND PAPERWORK. PT REPORTS BEEN IN CONTACT WITH FAMILY. PT REPORTS HAVING APPR EQUIP. AT HOME ALREADY INCLUDING WALKER, W/C, BATH CHAIR, AND SCOOTER. PT AWAITING TO HAVE DIALYSIS COMPLETE BEFORE LEAVING FOR HOME THIS EVENING.
--- NOTE | 2018-12-13 18:55 | NUR ---
DIALYSIS COMPLETE. FAMILY HERE TO GIVE PT RIDE HOME. PT AND FAMILY DENIES ANY FURTHER QUESTIONS. REPORTS UNDERSTANDING OF DISCHARGE INSTRUCTIONS.
== END 2018-12-13 18:56 | disposition home health service (06) | DRG 492 ==
LOC: ER 12:12 → SURS 17:43 → PCU 17:43 → SURS 17:44 → PCU 17:47 → SURS 12-11 11:39
PROVIDERS: Orthopaedic Surgery; ADMIT Internal Medicine
PROC: 0QSG04Z Reposition Right Tibia with Internal Fixation Device, Open Approach (ICD-10-PCS; 2018-12-11)
PROC: 0QSJ04Z Reposition Right Fibula with Internal Fixation Device, Open Approach (ICD-10-PCS; principal; 2018-12-11 12:30)
PROC: 5A1D70Z Performance of Urinary Filtration, Intermittent, Less than 6 Hours Per Day (ICD-10-PCS; 2018-12-12)
DX: S82.851A Displaced trimalleolar fracture of right lower leg, initial encounter for closed fracture (principal); N18.6 End stage renal disease; I12.0 Hypertensive chronic kidney disease with stage 5 chronic kidney disease or end stage renal disease; E10.42 Type 1 diabetes mellitus with diabetic polyneuropathy; Z87.891 Personal history of nicotine dependence; E10.22 Type 1 diabetes mellitus with diabetic chronic kidney disease; E78.5 Hyperlipidemia, unspecified; Z96.41 Presence of insulin pump (external) (internal); K21.9 Gastro-esophageal reflux disease without esophagitis; Z86.73 Personal history of transient ischemic attack (TIA), and cerebral infarction without residual deficits; N40.0 Benign prostatic hyperplasia without lower urinary tract symptoms; R41.0 Disorientation, unspecified; D63.1 Anemia in chronic kidney disease; Z99.2 Dependence on renal dialysis
CPT/HCPCS: 36415; 71046; 73700; 80048; 80069; 82947; 83735; 85014; 85018; 85025; 94660; 94762; 96374; 96376; 97116; 97162; 97530; 99285-25; A9270-GY; C1713; C1769; J0690; J0881; J1100; J1170; J1200; J2250; J2270; J2405; J2704; J2765; J3010; J7030

== ENCOUNTER 2019-06-10 18:14 | Emergency (ER) | payer OTHER ==
[~2019-06-10] VITALS: Ht 185.4 cm; Wt 73.0 kg
[~2019-06-10 18:14] MED LIST changes: +ACET325 PO; +CLON.1 PO; +DOCU100 PO; +GAVILAX17 GM PO; +Norco 5-325 Ta1 EACH PO; +ONDA4 PO; +TAMS.4ER PO
[2019-06-10 18:47] LABS: BASOPHILS ABSOLUTE AUTO 0.02 K/mm3 (0.00-0.23); BASOPHILS PERCENT AUTO 0 % (0-2); EOSINOPHILS PERCENT AUTO 6 % (0-6); Hematocrit 26.7 % (37.0-53.0); IMMATURE GRAN ABSOLUTE AUTO 0.02 K/mm3 (0.00-0.10); IMMATURE GRAN PERCENT AUTO 0 % (0-1); LYMPHOCYTES PERCENT AUTO 29 % (21-46); MONOCYTES ABSOLUTE AUTO 0.69 K/mm3 (0.16-1.47); MONOCYTES PERCENT AUTO 14 % (4-13); Mean Corpuscular HGB 31.8 pg (26.0-34.0); Mean Corpuscular HGB Conc 33.7 g/dL (31.5-36.5); Mean Corpuscular Volume 94 fL (80-100); Mean Platelet Volume 10.3 fL (9.1-12.4); NEUTROPHILS ABSOLUTE AUTO 2.37 K/mm3 (1.96-9.15); NEUTROPHILS PERCENT AUTO 49 % (41-73); Platelet Count 283 K/mm3 (150-400); RDW Coefficient Variation 14.4 % (11.7-14.2); RDW Standard Deviation 49.1 fL (35.1-46.3); Red Blood Cell Count 2.83 M/mm3 (4.30-5.90)
[2019-06-10 19:01] LABS: Albumin, Blood 2.7 g/dL (3.4-5.0); Albumin/Globulin Ratio 0.8 (0.8-1.8); Bilirubin, Total 0.4 mg/dL (0.1-1.0); Bun/Creatinine Ratio 8.1 (12.0-20.0); Calcium, Blood 7.8 mg/dL (8.5-10.1); Creatinine, Blood 6.76 mg/dL (0.60-1.20); Globulin, Blood 3.3 g/dL (2.2-4.0); Potassium, Blood 4.7 mmol/L (3.5-5.5)
[2019-06-10 19:29] LABS: Magnesium, Blood 2.1 mg/dL (1.6-2.4); Troponin I <0.015 ng/mL (0.000-0.040)
[2019-06-10 19:31] LABS: Phosphorus, Blood 3.4 mg/dL (2.5-4.9)
== END 2019-06-10 21:09 | disposition home or self-care (01) ==
LOC: ER 18:14
PROVIDERS: Emergency Medicine
DX: E87.8 Other disorders of electrolyte and fluid balance, not elsewhere classified (principal); I12.9 Hypertensive chronic kidney disease with stage 1 through stage 4 chronic kidney disease, or unspecified chronic kidney disease; E10.22 Type 1 diabetes mellitus with diabetic chronic kidney disease; N18.6 End stage renal disease; I95.1 Orthostatic hypotension; S92.901D Unspecified fracture of right foot, subsequent encounter for fracture with routine healing; X58.XXXD Exposure to other specified factors, subsequent encounter; Z79.899 Other long term (current) drug therapy; Z79.4 Long term (current) use of insulin; E78.5 Hyperlipidemia, unspecified; Z87.891 Personal history of nicotine dependence
CPT/HCPCS: 70450; 72072; 80053; 83735; 84100; 84443; 84484; 85025; 93005; 93010; 99285-25

== ENCOUNTER 2019-11-14 19:53 | Inpatient (IN) | payer OTHER ==
[~2019-11-14] VITALS: Ht 185.4 cm; Wt 59.8 kg
[2019-11-14 20:26] LABS: BASOPHILS ABSOLUTE AUTO 0.03 K/mm3 (0.00-0.23); BASOPHILS PERCENT AUTO 0 % (0-2); EOSINOPHILS ABSOLUTE AUTO 0.02 K/mm3 (0.00-0.68); EOSINOPHILS PERCENT AUTO 0 % (0-6); Hematocrit 31.2 % (37.0-53.0); IMMATURE GRAN ABSOLUTE AUTO 0.14 K/mm3 (0.00-0.10); IMMATURE GRAN PERCENT AUTO 1 % (0-1); LYMPHOCYTES PERCENT AUTO 7 % (21-46); MONOCYTES ABSOLUTE AUTO 0.84 K/mm3 (0.16-1.47); MONOCYTES PERCENT AUTO 5 % (4-13); Mean Corpuscular HGB 30.8 pg (26.0-34.0); Mean Corpuscular HGB Conc 32.1 g/dL (31.5-36.5); Mean Corpuscular Volume 96 fL (80-100); Mean Platelet Volume 11.8 fL (9.1-12.4); NEUTROPHILS ABSOLUTE AUTO 13.49 K/mm3 (1.96-9.15); NEUTROPHILS PERCENT AUTO 86 % (41-73); Platelet Count 234 K/mm3 (150-400); RDW Coefficient Variation 14.4 % (11.7-14.2); RDW Standard Deviation 50.1 fL (35.1-46.3); Red Blood Cell Count 3.25 M/mm3 (4.30-5.90); White Blood Cell Count 15.62 K/mm3 (4.00-11.30)
[2019-11-14 20:50] LABS: Alanine Aminotransfer (ALT/SGP 29 U/L (12-78); Albumin, Blood 2.8 g/dL (3.4-5.0); Albumin/Globulin Ratio 0.8 (0.8-1.8); Alk Phos 99 U/L (50-136); Anion Gap 25 mmol/L (6-16); Aspartate Aminotrans (AST/SGOT 24 U/L (12-37); Bilirubin, Total 0.6 mg/dL (0.1-1.0); Blood Urea Nitrogen 71 mg/dL (8-24); Bun/Creatinine Ratio 11.8 (12.0-20.0); CO2, Blood 13 mmol/L (21-32); Calcium, Blood 7.8 mg/dL (8.5-10.1); Chloride, Blood 85 mmol/L (98-108); Creatinine, Blood 6.03 mg/dL (0.60-1.20); Globulin, Blood 3.4 g/dL (2.2-4.0); Glomerular Filtration Rate 10 (60-); Glucose, Blood 904 mg/dL (70-99); Potassium, Blood 6.3 mmol/L (3.5-5.5); Sodium, Blood 123 mmol/L (136-145); Total Protein, Blood 6.2 g/dL (6.4-8.2)
[2019-11-14] MEDS ORDERED: PLAVIX75 MG PO (21:06)
[2019-11-14] MEDS ORDERED: CALCITRIOL0.5 MC1 PO (21:06)
[2019-11-14] MEDS ORDERED: Vitamin D2000 UNIT PO (21:07)
[2019-11-14 21:39] LABS: Base Excess Venous -17.1 mmol/L; Bicarbonate Venous 12.4 mmol/L (24.0-30.0); PCO2 Venous 30.3 mmHg (38-42); PO2 Venous 121 mmHg (38-42); pH Blood Venous 7.18 (7.34-7.37)
--- NOTE | 2019-11-14 23:30 | NUR ---
ADMIT ASSESSMENT PT ADMITTED VIA ER TO ROOM ICU 02. DX DKA. PT ARRIVED VIA GURNEY, TRANSFERED TO BED BY STAFF WITH SLIDER SHEET. PT AWAKE, FOLLOWING INSTRUCTIONS. DENIES PAIN OR DISCOMFORT. LUNGS CLEAR ON ROOMAIR. RESP EVEN AND NONLABORED. DENES SOB OR COUGH. HEART RATE REGULAR. NO EDEMA. BP STABLE. PT MOVING AND TURNING SELF IN BED. IV 20G TO LEFT HAND WITH CA GLUCONATE INFUSING, SITE CLEAR. IV 20G TO LEFT FOREARM WITH INSULIN AT 7.4 ML/HR SITE CLEAR. PD DIALYSIS SITE TO LEFT ABD CD&I. DIALYSIS NURSE AT BEDSIDE CHANGING DRSG AND STARTING PD DIALYSIS. BT+ DENIES N/V AT THIS TIME. WENT HOME.
[2019-11-14] MEDS ORDERED: Anti-Diarrheal2 MG PO (23:49)
[2019-11-15 00:01] LABS: Magnesium, Blood 1.8 mg/dL (1.6-2.4)
[2019-11-15 00:03] LABS: Bun/Creatinine Ratio 12.1 (12.0-20.0); Calcium, Blood 7.5 mg/dL (8.5-10.1); Creatinine, Blood 6.38 mg/dL (0.60-1.20); Phosphorus, Blood 5.1 mg/dL (2.5-4.9); Potassium, Blood 4.6 mmol/L (3.5-5.5)
--- NOTE | 2019-11-15 00:06 | NUR ---
NAUSEA PT STARTED COUGHING AND C/O NAUSEA. MED WITH ZOFRAN. NS AT 150 ML/HR STARTED. BLOOD GLUCOSE CAME BACK AT 844, KEEP INSULIN AT 7.4 ML/HR FOR NOW. PT TURNING SELF IN BED.
--- NOTE | 2019-11-15 00:28 | NUR ---
[facility] NON-ROUTINE HOURS THERAPY ORDER BY DR AREVALO FOR PATIENT ADMITTED TO ICU VIA ER WITH DKA. PATIENT LAYING IN BED WITH EYES CLOSED BUT ANSWERS QUESTIONS APPROPRIATELY. ALERT AND ORIENTED. C/O SOME NAUSEA AND MEDICATED BY BUHR MILL OPERATOR. CYCLER BROUGHT TO ROOM AND STRUNG , PRIMED PROGRAMMED. EXIT SITE CARE DONE. SITE CLEAR, DRY AND NON-TENDER. SITE CLEANSED WITH EXSEPT AND NEW STERILE DRESSING APPLIED WITH 2 STRAIN RELIEFS. WHEN PRIME COMPLETE [facility] THERAPY STARTED. PT REPORTED BEING DRY WITH NO LAST FILL AT END OF LAST THERPY. INITIAL DRAIN MONITORED AND THEN BYPASSED FOLLOWING DRAIN ALARM. FILL #1 STARTED WITH NO REPORT OF DISCOMFORT. BUHR MILL OPERATOR IN ROOM AND AWARE OF OVERNIGHT [facility] IN PROGRESS UNTIL APPROXIMATELY 0800 TOMORRW AM.
[2019-11-15 01:13] LABS: Glucose, Blood 790 mg/dL (70-99)
[2019-11-15 03:00] LABS: Glucose (ISTAT POC) >700 mg/dL (70-99)
[2019-11-15 03:16] LABS: Magnesium, Blood 1.8 mg/dL (1.6-2.4)
[2019-11-15 03:30] LABS: Bun/Creatinine Ratio 12.5 (12.0-20.0); Calcium, Blood 7.4 mg/dL (8.5-10.1); Creatinine, Blood 6.02 mg/dL (0.60-1.20); Potassium, Blood 3.9 mmol/L (3.5-5.5)
--- NOTE | 2019-11-15 05:08 | NUR ---
SHIFT SUMMARY PT SLEEPING, AWAKENS EASILY. TURNING AND MOVING SELF IN BED. PD DIALYSIS RUNNING. CBG Q2HR, INSULIN CURRENTLY AT 8 UNITS/HR. NS AT 150ML/HR UNTIL BLOOD GLUCOSE DOWN BELOW 250. VSS. DENIES PAIN OR DISCOMFORT. MED ONCE DURING THE NIGHT WITH ZOFRAN FOR NAUSEA. REPORT TO ON COMING NURSE
[2019-11-15 05:10] LABS: Glucose (ISTAT POC) 679 mg/dL (70-99)
[2019-11-15 07:59] LABS: Calcium, Blood 7.6 mg/dL (8.5-10.1); Creatinine, Blood 5.84 mg/dL (0.60-1.20); Magnesium, Blood 1.7 mg/dL (1.6-2.4); Phosphorus, Blood 2.7 mg/dL (2.5-4.9); Potassium, Blood 3.7 mmol/L (3.5-5.5)
[2019-11-15 08:26] LABS: Glucose (ISTAT POC) 601 mg/dL (70-99)
--- NOTE | 2019-11-15 08:45 | NUR ---
CARE ASSUMED ASSESSMENT COMPLETED, PT DENIES NAUSEA AND PAIN, IS RESTING IN BED WITH NO C/O, PD CONTINUES, VSS. INSULIN GTT INCREASED TO 9U/HR FOR BLOOD GLUCOSE OF 601 PER ISTAT. NS 150ML/HR. LABS DRAWN, PT DENIES NEEDS AT THIS TIME. DRESSING TO LEFT ABD PD CATHETER CDI.
--- NOTE | 2019-11-15 09:19 | NUR ---
PATIENT RESTING QUIETLY IN BED THIS AM. WAKENS EASILY TO ORIENT. [facility] THERAPY COMPLETE. PT AESEPTICALLY DISCONNECTED AND NEW MINI-CAP PLACED ON CATHETER. EFFLUENT CLEAR / LIGHT NAOMI. CYCLER STRIPPED AND CLEANED.
--- NOTE | 2019-11-15 12:01 | NUR ---
UPDATE HORACIO DIAZ AND MICKEY IN TO SEE PATIENT, PLAN FOR PD TONIGHT. PT CONTINUES TO REST IN BED WITH EYES CLOSED, WAKES EASILY, THEN GOES BACK TO SLEEP AFTER CARES ARE COMPLET, NEURO'S OTHERWISE INTACT. PT COOPERATIVE, VSS, WILL CONTINUE TO TITIRATE INSULIN DOWN ABLE.
[2019-11-15 12:14] LABS: Bun/Creatinine Ratio 11.6 (12.0-20.0); Calcium, Blood 7.5 mg/dL (8.5-10.1); Creatinine, Blood 5.76 mg/dL (0.60-1.20); Magnesium, Blood 1.6 mg/dL (1.6-2.4); Phosphorus, Blood 3.3 mg/dL (2.5-4.9); Potassium, Blood 3.6 mmol/L (3.5-5.5)
--- NOTE | 2019-11-15 14:02 | NUR ---
UPDATE CBG <250, DR. DIAZ NOTIFIED, NEW ORDERS. LANTUS AND D5W INFUSION ADMINISTERED PER ORDERS. PT REMAINS SLEEPY BUT ORIENTED X4, APPROPRIATE AND COOPERATIVE, VSS. WILL RECHECK CBG AND LABS ORDERED.
[2019-11-15 16:30] LABS: Bun/Creatinine Ratio 11.8 (12.0-20.0); Calcium, Blood 7.4 mg/dL (8.5-10.1); Creatinine, Blood 5.78 mg/dL (0.60-1.20); Potassium, Blood 3.7 mmol/L (3.5-5.5)
[2019-11-15 18:27] LABS: Source, Urine Catheter
[2019-11-15 18:31] LABS: Bilirubin, Urine Neg (Neg); Blood, Urine 1+ (Neg); Glucose Qualitative, Urine 4+ (Neg); Ketones, Urine 2+ (Neg); Leukocyte Esterase, Urine Neg (Neg); Nitrite, Urine Neg (Neg); Protein, Urine 3+ (Neg); Urobilinogen, Urine NORM (Normal)
--- NOTE | 2019-11-15 18:31 | NUR ---
END OF SHIFT PT SLEPT MOST OF THE DAY, WAKES EASILY AND IS ORIENTED X4, NEURO ASSESSMENT WNL OTHER THAN BEING DROWSY. PT PLEASANT AND COOPERATIVE, VSS. WEANED OFF OF INSULIN GTT THIS AFTERNOON PER PROTOCOL, LANTUS AND SS INSULIN ORDERS RECEIVED, BLOOD GLUCOSE STABLE. PT ATE SOME DINNER WITHOUT ABD PAIN OR N/V. NO URINE THIS SHIFT, BLADDER SCANNED WITH 750ML IN BLADDER, PT DENIES URINARY RETENTION AT HOME AND STATES HE VOIDS "A FEW TIMES EACH DAY." REID INSERTED PER PROTOCOL, SECURED, PATENT AND DRAINING. PT UP TO BSC FOR BM, GAIT WEAK BUT STEADY WITH SBA. PT MEDICAL STATUS WITHOUT TELEMETRY, REPORT TO ONCOMING SHIFT.
[2019-11-15 18:39] LABS: Appearance, Urine Clear (Clear); Color, Urine Yellow (P-Yellow)
[2019-11-15 18:40] LABS: Bacteria Few /hpf; Squamous Epithelial Cells Not Seen /hpf (Few); White Blood Cells, Urine 0-2 /hpf (0-5)
--- NOTE | 2019-11-15 19:27 | NUR ---
INITAL SHIFT ASSESSMENT PT IS STABLE AT THIS TIME. VITALS WNL. HE IS RESTING IN BED ON HIS LEFT SIDE. HE DENIES ANY PAIN, N/V, OR ANY OTHER COMPLAINTS. HE IS VERY DROWSY BUT COOPERTIVE WITH THIS NURSES INITAL ASSESSMENT. IV SL NO S/S OF INFECTION. PT HAS PD CATH SITE TO ABD. GAUZE DRESSING IN PLACE. REID CATH IN PLACE WITH NO S/S OF INFECTION. DRAINING CLEAR YELLOW URINE. DIALYSIS NURSE HERE AT THIS TIME TO START DIALYSIS. WILL CON'T TO MONITOR PT T/O SHIFT AND KEEP SAFE. CALL LIGHT IN REACH.
--- NOTE | 2019-11-15 20:51 | NUR ---
DIALYSIS-PD TOOK SUPPLIES TO SETUP PT'S PD TX. PT APPEARED ASLEEP. SETUP MACHINE AND WAS GOING TO CONNECT PT, BUT HE SAID HE NEEDED TO GET UP TO THE TOILET AND DIDN'T WANT TO BE CONNECTED UNTIL HE WAS DONE. WENT TO HIS ROOM A COUPLE OF TIMES AND HE WAS STILL UP ON THE TOILET. HE WAS EVENTUALLY PUT BACK TO BED AND I CONNECTED HIM TO HIS TX. HE SAID HE WAS NAUSEATED. HE WAS SHORT TEMPERED AND RESPONDED WITH "I DON'T CARE" ALOT. DRESSING CLEAN AND DRY. WILL CHANGE TOMORROW. DISCUSSED TX WITH HIS OCEANOGRAPHER PHYSICAL. 8.5 HOURS. 2200 FILLS, 1000 LAST FILL. R CYCLES. 1:36 HOURS DWELL. STARTED AT 2044. 1.5% DEXTROSE X 2 6 LITER BAGS.
--- NOTE | 2019-11-15 21:44 | NUR ---
UPDATE DIALYSIS NURSE STARTED PT'S PD DIALYSIS THIS EVENING. HE WAS UP TO COMMODE WITH NO ISSUES. HE C/O BEING NAUSEATED AND BLOOD SUGAR WAS CHECKED AND WAS NOTED TO BE LOW. PT HAD SOME APPLE JUICE AND MILK. ZOFRAN WAS ALSO GIVEN IV. PT STATES HIS NAUSE IS A LITTLE BETTER. WILL RE-CHECK HIS BLOOD SUGAR AT MIDNIGHT UNLESS PT CON'T TO FEEL LIKE HE IS HAVING LOW BLOOD SUGAR. WILL ENCOURAGE PT TO HAVE SOLID FOOD INTAKE.
--- NOTE | 2019-11-16 00:20 | NUR ---
ASSESSMENT PT CON'T TO BE STABLE. RESTING WITH EYES CLOSED ON HIS RIGHT SIDE. BLOOD SUGAR WAS RE-CHECKED AND IS 204. PT STATES HE FEELS GOOD AT THIS TIME, BUT TIRED. PD CON'T TO RUN. WILL CON'T TO MONITOR PT.
--- NOTE | 2019-11-16 02:30 | NUR ---
ASSUMED CARE OF PT, PT SLEEPING. PD DIALYSIS RUNNING.
[2019-11-16 07:51] LABS: Bun/Creatinine Ratio 10.6 (12.0-20.0); Calcium, Blood 7.3 mg/dL (8.5-10.1); Creatinine, Blood 5.64 mg/dL (0.60-1.20)
--- NOTE | 2019-11-16 08:00 | NUR ---
ASSUMED CARE: REPORT RECEIVED FROM RADHA Olsen RN. ASSUMED CARE OF THIS PT AT APPROX 0700. ON ASSESSMENT, THE PT IS AWAKE, A&O. PERITONEAL DIALYSIS HAS JUST COMPLETED & JUVE GARCIA RN, AT BEDSIDE TO DISCONNECT PT FROM MACHINE. LS ARE CLEAR T/O, PT ON RA W/ O2 SATS > 92%. HEART MONITOR NOT IN USE PT IS MED NO TELE STATUS, BP STABLE. NO GI COMPLAINTS. REID PATENT/ DRAINING. SKIN OVERALL CDI W/ PD CATHETHERS NOTED TO ABD. WILL CONTINUE TO MONITOR & UPDATE NEEDED.
--- NOTE | 2019-11-16 08:24 | NUR ---
DIALYSIS-PD PT SLEEPING. WOKE EASILY. DC'ED TX PER ALESSANDRA. ID [id number]. UF [phone]. EFFLUENT CLEAR.
--- NOTE | 2019-11-16 08:25 | NUR ---
DR DIAZ: PROVIDER AT BEDSIDE TO EVAL PT. STS HE BELIEVES THAT PT WOULD BE OKAY TO GO HOME TODAY. INSULIN REGIMEN IS DISCUSSED & PROVIDER STS THAT PT WILL RESUME HOME REGIMEN W/ INSULIN PUMP AT TIME OF D/C. PROVIDER TO PLACE ORDERS.
--- NOTE | 2019-11-16 10:48 | NUR ---
review with nursing for pt discharge his primary care doctor has copy of AD that states full code. advised to have copy on hand and to get one scanned to [facility] records.
--- NOTE | 2019-11-16 12:36 | NUR ---
DISCHARGE TO HOME: PT's SON ARRIVED AT FACILITY TO BRING PT's CLOTHES. HE IS ABLE TO DRESS SELF W/O DIFFICULTY. D/C TEACHING HAS BEEN COMPLETED TO PT & HE VERBALIZES UNDERSTANDING OF THIS EDUCATION. PIV & MONITORS REMOVED PRIOR TO D/C. PT TX OUT VIA WC BY EMY WOLFE. D/C PACKET & ALL BELONGINGS OUT W/ PT AT 1235
== END 2019-11-16 12:38 | disposition home or self-care (01) | DRG 637 ==
LOC: ER 19:53 → ICUE 23:03 → ICUW 23:03 → ICUE 23:25 → ENPENDDIS 11-16 09:30 → ICUE 11-16 12:38
PROVIDERS: Internal Medicine; Physician Assistant; ADMIT Internal Medicine
DX: E10.10 Type 1 diabetes mellitus with ketoacidosis without coma (principal); N18.6 End stage renal disease; I12.0 Hypertensive chronic kidney disease with stage 5 chronic kidney disease or end stage renal disease; J44.9 Chronic obstructive pulmonary disease, unspecified; K21.9 Gastro-esophageal reflux disease without esophagitis; E10.43 Type 1 diabetes mellitus with diabetic autonomic (poly)neuropathy; E10.22 Type 1 diabetes mellitus with diabetic chronic kidney disease; K31.84 Gastroparesis; Z79.4 Long term (current) use of insulin; Z96.41 Presence of insulin pump (external) (internal); E78.5 Hyperlipidemia, unspecified; E87.5 Hyperkalemia; F32.9 Major depressive disorder, single episode, unspecified; N40.0 Benign prostatic hyperplasia without lower urinary tract symptoms; Z87.891 Personal history of nicotine dependence
CPT/HCPCS: 36415; 51702; 74176; 80048; 80053; 81001; 82010; 82803; 82947; 83605; 83735; 84100; 85025; 96361; 96374; 96375; 99285-25; A9270-GY; J0610; J0696; J1644; J1815; J2405; J7030; J7070

== ENCOUNTER 2020-01-28 08:43 | Day surgery (SDC) | payer OTHER ==
[~2020-01-28] VITALS: Ht 185.4 cm; Wt 77.2 kg
[~2020-01-28 08:43] MED LIST changes: +Anti-Diarrheal2 MG PO; +CALCITRIOL0.5 MC1 PO; +PLAVIX75 MG PO
[2020-01-28] MEDS ORDERED: METO25ER (09:51)
== END 2020-01-28 13:25 | disposition home or self-care (01) ==
LOC: ORSCSDS 08:43
PROVIDERS: Internal Medicine Gastroenterology
PROC: 0DB98ZX Excision of Duodenum, Via Natural or Artificial Opening Endoscopic, Diagnostic (ICD-10-PCS; principal; 2020-01-28 12:00)
PROC: 0DBH8ZX Excision of Cecum, Via Natural or Artificial Opening Endoscopic, Diagnostic (ICD-10-PCS; principal; 2020-01-28 12:00)
PROC: 0DB68ZX Excision of Stomach, Via Natural or Artificial Opening Endoscopic, Diagnostic (ICD-10-PCS; principal; 2020-01-28 12:00)
DX: R11.2 Nausea with vomiting, unspecified (principal); D12.0 Benign neoplasm of cecum; K57.30 Diverticulosis of large intestine without perforation or abscess without bleeding; K64.1 Second degree hemorrhoids; Z86.010 Personal history of colon polyps; K21.9 Gastro-esophageal reflux disease without esophagitis; K22.10 Ulcer of esophagus without bleeding; K31.84 Gastroparesis; E10.8 Type 1 diabetes mellitus with unspecified complications; I10 Essential (primary) hypertension; N18.6 End stage renal disease; Z79.4 Long term (current) use of insulin; Z79.899 Other long term (current) drug therapy
CPT/HCPCS: 82947; J1580; J2704; J3370; J7030; J7120

== ENCOUNTER 2020-10-10 17:24 | Emergency (ER) | payer OTHER ==
[~2020-10-10] VITALS: Ht 185.4 cm; Wt 88.5 kg
[~2020-10-10 17:24] MED LIST changes: +METO25ER
[2020-10-10 18:05] LABS: BASOPHILS ABSOLUTE AUTO 0.03 K/mm3 (0.00-0.23); BASOPHILS PERCENT AUTO 1 % (0-2); EOSINOPHILS ABSOLUTE AUTO 0.42 K/mm3 (0.00-0.68); EOSINOPHILS PERCENT AUTO 7 % (0-6); Hematocrit 30.6 % (37.0-53.0); Hemoglobin 10.8 g/dL (13.5-17.5); IMMATURE GRAN ABSOLUTE AUTO 0.01 K/mm3 (0.00-0.10); IMMATURE GRAN PERCENT AUTO 0 % (0-1); LYMPHOCYTES ABSOLUTE AUTO 1.49 K/mm3 (0.84-5.20); LYMPHOCYTES PERCENT AUTO 25 % (21-46); MONOCYTES ABSOLUTE AUTO 0.76 K/mm3 (0.16-1.47); MONOCYTES PERCENT AUTO 13 % (4-13); Mean Corpuscular HGB 31.7 pg (26.0-34.0); Mean Corpuscular HGB Conc 35.3 g/dL (31.5-36.5); Mean Corpuscular Volume 90 fL (80-100); Mean Platelet Volume 10.4 fL (9.1-12.4); NEUTROPHILS ABSOLUTE AUTO 3.29 K/mm3 (1.96-9.15); NEUTROPHILS PERCENT AUTO 55 % (41-73); Platelet Count 278 K/mm3 (150-400); RDW Coefficient Variation 13.8 % (11.7-14.2); RDW Standard Deviation 45.6 fL (35.1-46.3); Red Blood Cell Count 3.41 M/mm3 (4.30-5.90)
[2020-10-10 18:26] LABS: Troponin I 0.018 ng/mL (0.000-0.040)
[2020-10-10 18:27] LABS: Albumin, Blood 2.5 g/dL (3.4-5.0); Albumin/Globulin Ratio 0.7 (0.8-1.8); Bilirubin, Total 0.3 mg/dL (0.1-1.0); Bun/Creatinine Ratio 4.7 (12.0-20.0); Calcium, Blood 7.7 mg/dL (8.5-10.1); Creatinine, Blood 8.17 mg/dL (0.60-1.20); Globulin, Blood 3.6 g/dL (2.2-4.0); Potassium, Blood 3.2 mmol/L (3.5-5.5); Total Protein, Blood 6.1 g/dL (6.4-8.2)
== END 2020-10-10 22:21 | disposition home or self-care (01) ==
LOC: ER 17:24
PROVIDERS: Physician Assistant
DX: E10.43 Type 1 diabetes mellitus with diabetic autonomic (poly)neuropathy (principal); K31.84 Gastroparesis; E10.22 Type 1 diabetes mellitus with diabetic chronic kidney disease; E78.5 Hyperlipidemia, unspecified; I12.0 Hypertensive chronic kidney disease with stage 5 chronic kidney disease or end stage renal disease; N18.5 Chronic kidney disease, stage 5; Z99.2 Dependence on renal dialysis; Z87.891 Personal history of nicotine dependence; Z79.899 Other long term (current) drug therapy; Z79.02 Long term (current) use of antithrombotics/antiplatelets; Z79.4 Long term (current) use of insulin
CPT/HCPCS: 36415; 71045; 80053; 84484; 85025; 93005; 93010; 96374; 99284-25; A9270; J2765; J7030

== ENCOUNTER 2021-01-25 10:39 | Emergency (ER) | payer OTHER ==
[~2021-01-25] VITALS: Ht 185.4 cm; Wt 77.1 kg
[2021-01-25 11:34] LABS: BASOPHILS ABSOLUTE AUTO 0.04 K/mm3 (0.00-0.23); BASOPHILS PERCENT AUTO 1 % (0-2); EOSINOPHILS ABSOLUTE AUTO 0.45 K/mm3 (0.00-0.68); EOSINOPHILS PERCENT AUTO 7 % (0-6); Hematocrit 28.4 % (37.0-53.0); Hemoglobin 9.9 g/dL (13.5-17.5); IMMATURE GRAN ABSOLUTE AUTO 0.03 K/mm3 (0.00-0.10); IMMATURE GRAN PERCENT AUTO 0 % (0-1); LYMPHOCYTES ABSOLUTE AUTO 1.88 K/mm3 (0.84-5.20); LYMPHOCYTES PERCENT AUTO 28 % (21-46); MONOCYTES ABSOLUTE AUTO 0.73 K/mm3 (0.16-1.47); MONOCYTES PERCENT AUTO 11 % (4-13); Mean Corpuscular HGB 32.7 pg (26.0-34.0); Mean Corpuscular HGB Conc 34.9 g/dL (31.5-36.5); Mean Corpuscular Volume 94 fL (80-100); Mean Platelet Volume 10.3 fL (9.1-12.4); NEUTROPHILS ABSOLUTE AUTO 3.67 K/mm3 (1.96-9.15); NEUTROPHILS PERCENT AUTO 54 % (41-73); Platelet Count 292 K/mm3 (150-400); RDW Coefficient Variation 13.7 % (11.7-14.2); Red Blood Cell Count 3.03 M/mm3 (4.30-5.90)
[2021-01-25 12:09] LABS: Albumin, Blood 2.5 g/dL (3.4-5.0); Albumin/Globulin Ratio 0.7 (0.8-1.8); Bilirubin, Total 0.3 mg/dL (0.1-1.0); Bun/Creatinine Ratio 4.1 (12.0-20.0); Calcium, Blood 7.7 mg/dL (8.5-10.1); Creatinine, Blood 10.8 mg/dL (0.60-1.20); Globulin, Blood 3.7 g/dL (2.2-4.0); Potassium, Blood 3.8 mmol/L (3.5-5.5); Total Protein, Blood 6.2 g/dL (6.4-8.2)
[2021-01-25 15:53] LABS: Free Thyroxine 1.02 ng/dL (0.70-1.60); Thyroid Stimulating Hormone 4.2 uIU/mL (0.360-4.800)
== END 2021-01-25 17:21 | disposition home or self-care (01) ==
LOC: ER 10:39
PROVIDERS: Emergency Medicine; Physician Assistant
DX: H53.8 Other visual disturbances (principal); Z79.02 Long term (current) use of antithrombotics/antiplatelets; Z79.899 Other long term (current) drug therapy
CPT/HCPCS: 36415; 70450; 80053; 84439; 84443; 85025; 93005; 93010; 99284-25

== ENCOUNTER 2021-03-22 18:54 | Inpatient (IN) | payer OTHER ==
[~2021-03-22] VITALS: Ht 182.9 cm; Wt 85.2 kg
[~2021-03-22 18:54] MED LIST changes: -METO25ER; +METO25ER PO
[2021-03-22 19:29] LABS: BASOPHILS ABSOLUTE AUTO 0.03 K/mm3 (0.00-0.23); BASOPHILS PERCENT AUTO 0 % (0-2); EOSINOPHILS ABSOLUTE AUTO 0.11 K/mm3 (0.00-0.68); EOSINOPHILS PERCENT AUTO 2 % (0-6); Hematocrit 29.1 % (37.0-53.0); Hemoglobin 10.1 g/dL (13.5-17.5); IMMATURE GRAN ABSOLUTE AUTO 0.06 K/mm3 (0.00-0.10); IMMATURE GRAN PERCENT AUTO 1 % (0-1); LYMPHOCYTES PERCENT AUTO 11 % (21-46); MONOCYTES ABSOLUTE AUTO 0.56 K/mm3 (0.16-1.47); MONOCYTES PERCENT AUTO 7 % (4-13); Mean Corpuscular HGB 32.3 pg (26.0-34.0); Mean Corpuscular HGB Conc 34.7 g/dL (31.5-36.5); Mean Corpuscular Volume 93 fL (80-100); Mean Platelet Volume 9.5 fL (9.1-12.4); NEUTROPHILS ABSOLUTE AUTO 6.02 K/mm3 (1.96-9.15); NEUTROPHILS PERCENT AUTO 79 % (41-73); Platelet Count 321 K/mm3 (150-400); RDW Coefficient Variation 13.9 % (11.7-14.2); RDW Standard Deviation 46.8 fL (35.1-46.3); Red Blood Cell Count 3.13 M/mm3 (4.30-5.90); White Blood Cell Count 7.58 K/mm3 (4.00-11.30)
[2021-03-22 19:59] LABS: Acetaminophen, Random <2.0 ug/mL (10.0-30.0); Free Thyroxine 1.09 ng/dL (0.70-1.60); Salicylate <1.7 mg/dL (2.8-20.0)
[2021-03-22 20:17] LABS: Alanine Aminotransfer (ALT/SGP 19 U/L (12-78); Albumin, Blood 2.4 g/dL (3.4-5.0); Albumin/Globulin Ratio 0.6 (0.8-1.8); Alk Phos 58 U/L (50-136); Anion Gap 6 mmol/L (6-16); Aspartate Aminotrans (AST/SGOT 23 U/L (12-37); Bilirubin, Total 0.4 mg/dL (0.1-1.0); Blood Urea Nitrogen 45 mg/dL (8-24); Bun/Creatinine Ratio 4.2 (12.0-20.0); CO2, Blood 29 mmol/L (21-32); Chloride, Blood 105 mmol/L (98-108); Glomerular Filtration Rate 5 (60-); Glucose, Blood 91 mg/dL (70-99); Potassium, Blood 4.8 mmol/L (3.5-5.5); Sodium, Blood 140 mmol/L (136-145); Total Protein, Blood 6.4 g/dL (6.4-8.2)
[2021-03-23 00:22] LABS: Source, Urine Catheter
[2021-03-23 00:30] LABS: Bilirubin, Urine Neg (Neg); Blood, Urine 1+ (Neg); Glucose Qualitative, Urine 2+ (Neg); Ketones, Urine Neg (Neg); Leukocyte Esterase, Urine Neg (Neg); Nitrite, Urine Neg (Neg); Protein, Urine 4+ (Neg); Urobilinogen, Urine NORM (Normal)
[2021-03-23 00:32] LABS: Appearance, Urine Clear (Clear); Color, Urine Yellow (P-Yellow)
[2021-03-23 00:39] LABS: Bacteria Few /hpf; Squamous Epithelial Cells Not Seen /hpf (Few)
[2021-03-23 00:40] LABS: U Amphetamine Screen Not Detected; U Barbituate Screen Not Detected; U Benzodiazapine Screen Not Detected; U Buprenorphine Screen Not Detected; U Cannabinoids Screen Not Detected; U Cocaine Screen Not Detected; U Methadone Screen Not Detected; U Methamphetamine Screen Not Detected; U Opiates Screen Not Detected; U Oxycodone Screen Not Detected; U Phencyclidine Screen Not Detected; U Propoxyphene Screen Not Detected
--- NOTE | 2021-03-23 01:50 | NUR ---
PCU ADMIT PT BROUGHT TO PCU-09 BY JAISON FROM ER @ APPROX 0115. PT SLID OVER FROM [facility] TO PCU BED BY 4 STAFF MEMBERS. PT A&O X4, ABLE TO ANSWER Q's APPROPRIATELY BUT DOES NOT RECALL EVENT LEADING UP TO BEING FOUND ON THE FLOOR BY HIS SPOUSE. PT DOES REPORT KNOWING HE's IN THE HOSPITAL D/T HIS INITIALLY LOW CBG. D5 1/2NS GTT INFUSING UPON ARRIVAL TO UNIT. CBG's TO BE MONITORED Q2H.
--- NOTE | 2021-03-23 02:04 | NUR ---
ELEVATED CBG / CALL TO MD CALL TO MD GRACE TO REPORT PT CBG 226. MD W/ INSTRUCTIONS TO SHUT OFF D5 1/2NS GTT & CONTINUE TO MONITOR CBG Q2H.
[2021-03-23 03:55] LABS: BASOPHILS ABSOLUTE AUTO 0.02 K/mm3 (0.00-0.23); BASOPHILS PERCENT AUTO 0 % (0-2); EOSINOPHILS ABSOLUTE AUTO 0.02 K/mm3 (0.00-0.68); EOSINOPHILS PERCENT AUTO 0 % (0-6); Hematocrit 26.4 % (37.0-53.0); Hemoglobin 8.9 g/dL (13.5-17.5); IMMATURE GRAN ABSOLUTE AUTO 0.05 K/mm3 (0.00-0.10); IMMATURE GRAN PERCENT AUTO 1 % (0-1); LYMPHOCYTES ABSOLUTE AUTO 0.65 K/mm3 (0.84-5.20); LYMPHOCYTES PERCENT AUTO 7 % (21-46); MONOCYTES ABSOLUTE AUTO 0.53 K/mm3 (0.16-1.47); MONOCYTES PERCENT AUTO 6 % (4-13); Mean Corpuscular HGB 31.8 pg (26.0-34.0); Mean Corpuscular HGB Conc 33.7 g/dL (31.5-36.5); Mean Corpuscular Volume 94 fL (80-100); Mean Platelet Volume 9.9 fL (9.1-12.4); NEUTROPHILS ABSOLUTE AUTO 7.61 K/mm3 (1.96-9.15); NEUTROPHILS PERCENT AUTO 86 % (41-73); Platelet Count 270 K/mm3 (150-400); RDW Coefficient Variation 14.1 % (11.7-14.2); White Blood Cell Count 8.88 K/mm3 (4.00-11.30)
[2021-03-23 04:27] LABS: Bun/Creatinine Ratio 4.6 (12.0-20.0); Calcium, Blood 7.9 mg/dL (8.5-10.1); Creatinine, Blood 11.5 mg/dL (0.60-1.20); Potassium, Blood 5.7 mmol/L (3.5-5.5)
--- NOTE | 2021-03-23 06:04 | NUR ---
SHIFT SUMMARY PT CONTINUES TO BE A&O X4. SLEEPING MAJORITY OF SHIFT, WAKES TO VERBAL STIMULI. BP ELEVATED, MEDICATED W/ PRN HYDRALAZINE PER EMAR W/ IMPROVEMENT. VSS. MONITOR SHOWING SR, HR 80's. SPO2 > 92% ON RA. PT W/ HARSH, PRODUCTIVE COUGH. COUGH OUTPUT UNASSESSED D/T PT SWALLOWING CONTENTS. CBG MONITORING Q2H W/ LAST 2 CHECKS IN THE 200 RANGE, SEE LAB VALUES. D5 1/2NS GTT ON STANDBY. INSULIN PUMP INFUSION SET NOTED TO RLQ W/ PUMP NOT IN PLACE (PT REPORTS PUMP AT HOME). PT W/ PERITONEAL DIALYSIS CATH TO LLQ. PT REPORTS DOING NIGHTLY DIALYSIS AT HOME. NEPHROLOGY CONSULT CALLED FOR MD AREVALO PER MD GRACE ORDER.
--- NOTE | 2021-03-23 07:18 | NUR ---
NURSING PCU DAYSHIFT: Assumed care of pt at approx 0700. A/O, pleasant, cooperative w/care. Noted general weakness though able to reposition independtly in bed. Chronic numb/ting in upper exts, dep on positioning. C/O 03/05 chronic back pain r/t lying in bed, denies need for medication management at this time. Skin is intact w/no breakdown noted. Tele in place, NSR, no c/o CP/pressure, SBP 140's, no noted edema. L/S cta t/o, O2 sat upper 90's on RA, occ cough producing small amounts of clear sputum, dypnea w/cough only. Abd SNT, PD port noted to L abd, BT+, denies nausea, attends in place, mild incontinence noted. PIV x1, s/l. Pt denies any current needs or questions regarding plan of care. Continue Q2 CBG as per d/o. Awaiting dayshift magnetic resonance technologist to discuss need for PD. Call light in reach, cont to monitor for any changes.
--- NOTE | 2021-03-23 10:36 | NUR ---
PATIENT IN BED, RESTING WITH INTERMITTENT C/O STOMACH UPSET. A/O X3. NO SOB DAYTIME CCPD SET UP PER DR RICHARDS'S ORDER. CYCLER STRUNG PRIMED AND PROGRAMMED. WHEM PRIME COMPLETE, PATIENT AESEPTICALLY CONNECTED AND THERAPY STARTED. NO DISCOMFORT NOTED WITH FILL #1 EXIT SITE CARE DONE. NO ISSUES NOTED. EXIT DRY / TIGHT / NON-TENDER. NEW STERILE DRESSING APPLIED WITH 3 STRAIN RELIEFS.
--- NOTE | 2021-03-23 12:40 | NUR ---
ASSUMED PATIENT CARE. NO SIGNS OF ACUTE DISTRESS AT THIS TIME. PATIENT IS ALERT AND ORIENTED, COOPERATIVE WITH CARE. NO CHANGES SINCE PREVIOUS ASSESSMENT BY ZEUS RN.
--- NOTE | 2021-03-23 16:10 | NUR ---
REPORT GIVEN TO ZEUS MONTEMAYOR.
--- NOTE | 2021-03-23 16:58 | NUR ---
NURSING PCU DAYSHIFT SUMMARY: Seen by PMD and cottage supervisor, plan of care discussed. Insulin pump brought in and set up by family, restarted pt home dosing (minus carb counting). CBG remained 390-400's t/o the shift w/coverage alternating between SS and home dose bolus. PD started and completed early afternoon, plan for regularly scheduled PD this evening. Pt noted to have no u/o, bladder scan completed, resulted 398. Pt attempted again to void w/no output. PMD notified, new d/o received for OT straight cath. Daughter at bedside intermittently t/o the shift. Updates provided, plan of care discussed. Pt conitinues to chronic back pain, treating with repositioning. Remains generally weak though appears improved from a.m. Cont to monitor until rpt is given to TYLER RN.
[2021-03-24 04:21] LABS: BASOPHILS ABSOLUTE AUTO 0.03 K/mm3 (0.00-0.23); BASOPHILS PERCENT AUTO 0 % (0-2); EOSINOPHILS ABSOLUTE AUTO 0.04 K/mm3 (0.00-0.68); EOSINOPHILS PERCENT AUTO 0 % (0-6); Hematocrit 21.3 % (37.0-53.0); Hemoglobin 7.2 g/dL (13.5-17.5); IMMATURE GRAN ABSOLUTE AUTO 0.09 K/mm3 (0.00-0.10); IMMATURE GRAN PERCENT AUTO 1 % (0-1); LYMPHOCYTES ABSOLUTE AUTO 1.41 K/mm3 (0.84-5.20); LYMPHOCYTES PERCENT AUTO 10 % (21-46); MONOCYTES ABSOLUTE AUTO 1.65 K/mm3 (0.16-1.47); MONOCYTES PERCENT AUTO 12 % (4-13); Mean Corpuscular HGB Conc 33.8 g/dL (31.5-36.5); Mean Corpuscular Volume 95 fL (80-100); Mean Platelet Volume 10.1 fL (9.1-12.4); NEUTROPHILS ABSOLUTE AUTO 10.45 K/mm3 (1.96-9.15); NEUTROPHILS PERCENT AUTO 76 % (41-73); Platelet Count 277 K/mm3 (150-400); RDW Coefficient Variation 14.2 % (11.7-14.2); RDW Standard Deviation 48.3 fL (35.1-46.3); Red Blood Cell Count 2.25 M/mm3 (4.30-5.90); White Blood Cell Count 13.67 K/mm3 (4.00-11.30)
[2021-03-24 04:45] LABS: Magnesium, Blood 1.9 mg/dL (1.6-2.4)
[2021-03-24 04:57] LABS: Alanine Aminotransfer (ALT/SGP 15 U/L (12-78); Albumin, Blood 1.9 g/dL (3.4-5.0); Albumin/Globulin Ratio 0.7 (0.8-1.8); Alk Phos 43 U/L (50-136); Anion Gap 8 mmol/L (6-16); Aspartate Aminotrans (AST/SGOT 30 U/L (12-37); Bilirubin, Direct <0.1 mg/dL (0.0-0.3); Bilirubin, Indirect Unable to Calculate mg/dL (0.1-0.7); Bilirubin, Total 0.3 mg/dL (0.1-1.0); Blood Urea Nitrogen 63 mg/dL (8-24); Bun/Creatinine Ratio 6.4 (12.0-20.0); CO2, Blood 26 mmol/L (21-32); Calcium, Blood 7.7 mg/dL (8.5-10.1); Chloride, Blood 100 mmol/L (98-108); Creatinine, Blood 9.92 mg/dL (0.60-1.20); Globulin, Blood 2.8 g/dL (2.2-4.0); Glomerular Filtration Rate 5 (60-); Glucose, Blood 256 mg/dL (70-99); Phosphorus, Blood 5.1 mg/dL (2.5-4.9); Potassium, Blood 4.2 mmol/L (3.5-5.5); Sodium, Blood 134 mmol/L (136-145); Total Protein, Blood 4.7 g/dL (6.4-8.2)
--- NOTE | 2021-03-24 06:24 | NUR ---
GLASS BULB MACHINE ADJUSTER SUMMARY PT IS AXO X 3-4 THIS SHIFT. PT WAS GIVEN HYDRALAZINE X1 THIS SHIFT FOR SBP >160. O2 SATS >92% ON RM AIR. PT RECIEVED PD THIS SHIFT. PT HAD NO URINE OUTPUT THIS SHIFT AND BLADDER SCAN THIS AM SHOWED >150ML. TELE HAS SHOWN NSR IN THE 60'S THIS SHIFT. CBG'S WERE ELEVATED AT THE START OF THE SHIFT BUT IS NOW 114 THIS AM. WILL REPORT TO ONCOMING RN.
--- NOTE | 2021-03-24 12:22 | NUR ---
DIALYSIS-PD 0730 PT VERY SLEEPY. WAKES EASILY, BUT FALLS BACK TO SLEEP. ID [id number], UF [id number]. SITE STILL HAS DRESSING FROM LAST NIGHT. PT DISCONNECTED FROM PD TX PER PROTOCAL AND WITH ANY PROBLEMS.
[2021-03-24 16:42] LABS: BASOPHILS ABSOLUTE AUTO 0.04 K/mm3 (0.00-0.23); BASOPHILS PERCENT AUTO 0 % (0-2); EOSINOPHILS ABSOLUTE AUTO 0.15 K/mm3 (0.00-0.68); EOSINOPHILS PERCENT AUTO 1 % (0-6); Hematocrit 22.7 % (37.0-53.0); Hemoglobin 7.5 g/dL (13.5-17.5); IMMATURE GRAN ABSOLUTE AUTO 0.07 K/mm3 (0.00-0.10); IMMATURE GRAN PERCENT AUTO 1 % (0-1); LYMPHOCYTES ABSOLUTE AUTO 1.73 K/mm3 (0.84-5.20); LYMPHOCYTES PERCENT AUTO 11 % (21-46); MONOCYTES ABSOLUTE AUTO 1.39 K/mm3 (0.16-1.47); MONOCYTES PERCENT AUTO 9 % (4-13); Mean Corpuscular HGB 31.8 pg (26.0-34.0); Mean Corpuscular Volume 96 fL (80-100); Mean Platelet Volume 10.2 fL (9.1-12.4); NEUTROPHILS ABSOLUTE AUTO 11.95 K/mm3 (1.96-9.15); NEUTROPHILS PERCENT AUTO 78 % (41-73); Platelet Count 271 K/mm3 (150-400); RDW Coefficient Variation 14.4 % (11.7-14.2); RDW Standard Deviation 50.1 fL (35.1-46.3); Red Blood Cell Count 2.36 M/mm3 (4.30-5.90); White Blood Cell Count 15.33 K/mm3 (4.00-11.30)
[2021-03-24 17:13] LABS: Albumin/Globulin Ratio 0.7 (0.8-1.8); Bilirubin, Total 0.2 mg/dL (0.1-1.0); Bun/Creatinine Ratio 6.3 (12.0-20.0); Calcium, Blood 7.7 mg/dL (8.5-10.1); Creatinine, Blood 10.7 mg/dL (0.60-1.20); Potassium, Blood 5.2 mmol/L (3.5-5.5)
--- NOTE | 2021-03-24 17:18 | NUR ---
Pt visit this afternoon. Spoke with Primary RN Cecile and radial drill operator for plastic Ophelia. Discussed case and concerns. Spouse expressing concerns and frustrations regarding the possibility of Pt D/C today. Pt resting in bed upon arrival. Pt's spouse expresses significant frustration the instant this RN entered the room. Offered therapeutic listening and validated concerns. Called hospitalist and relayed spouse Ann's request to speak with him. Remained in the room as Dr Blake's reviewed plan of care and answered questions. Remained behind to offer additional therapeutic listening. Engaged in therapeutic and gentle education regarding the importance of planning for the future. Answered questions and continued listening. Ann expresses appreciation of visit and report no other concerns. Pt remains withdrawn and does not engage in conversation much. Spoke with PT Adriano and OT Eladia. Discussed case and recommendations are home with home health. Palliative Care will remain available.
--- NOTE | 2021-03-24 18:05 | NUR ---
PT HAS BEEN RESTING WELL BED T/O THE DAY. PT A/O X3, ANSWERS QUSETIONS SLOW BU APPROPRIATELY. PT GLUCOSE HAS BEEN BELOW 150 T/O THE DAY AND HAS NOT REQUIRED ANY ADDITIONAL INSULIN BEYOND HIS BASIL RATE. FAMILY IS AT THE BEDSIDE, PT AND FAMILY HAVE MET WITH PT, OT, HOME HEALTH, PALLIATIVE CARE, AND DR SYLVESTERTRATE TODAY RELATED TO HIS D/C PLAN. PT WITH 50ML/HR NS INFUSING AT THIS TIME. PT IS PLANNED TO BE D/C TOMORROW.
--- NOTE | 2021-03-24 20:22 | NUR ---
DIALYSIS-PD PT CONNECTED TO PD THERAPY AT 1945 PER PROTOCAL. PT VERY SLEEPY, BUT ALERT. ASKED QUESTIONS TO MAKE I HAD THE PROGRAM. TOTAL FILL 18464 ML, 8.5 HOURS , 2200ML FILL VOLUME, LAST FILL 0, DWELL TIME 1 HOUR AND 37 MIN. ONE 2.5% DEXTROSE 6 L AND ONE 1.5 % DEXTROSE 6 L. SITE CLEAR. CLEANED AND DRESSED. REPORT GIVEN TO CLINICAL APPLICATIONS MANAGER AND CHARGE NURSE
[2021-03-24 23:16] LABS: Automated BF WBC Count 0.012 K/mm3 (0-999); Body Fluid WBC Count 12 /mm3 (0-999)
[2021-03-24 23:24] LABS: Appearance, Body Fluid Clear (Clear); Color, Body Fluid No color (None-Yellow); RBC Count, Body Fluid 1 /mm3 (0-0)
[2021-03-24 23:45] LABS: Total Cell Count, Body Fluid 100
[2021-03-25 01:28] LABS: SARS-Cov-2 (COVID-19) PCR, MMC NEGATIVE (NEGATIVE)
[2021-03-25 04:18] LABS: BASOPHILS ABSOLUTE AUTO 0.03 K/mm3 (0.00-0.23); BASOPHILS PERCENT AUTO 0 % (0-2); EOSINOPHILS ABSOLUTE AUTO 0.24 K/mm3 (0.00-0.68); EOSINOPHILS PERCENT AUTO 3 % (0-6); Hematocrit 20.4 % (37.0-53.0); Hemoglobin 6.9 g/dL (13.5-17.5); IMMATURE GRAN ABSOLUTE AUTO 0.02 K/mm3 (0.00-0.10); IMMATURE GRAN PERCENT AUTO 0 % (0-1); LYMPHOCYTES ABSOLUTE AUTO 1.69 K/mm3 (0.84-5.20); LYMPHOCYTES PERCENT AUTO 18 % (21-46); MONOCYTES ABSOLUTE AUTO 1.02 K/mm3 (0.16-1.47); MONOCYTES PERCENT AUTO 11 % (4-13); Mean Corpuscular HGB 32.5 pg (26.0-34.0); Mean Corpuscular HGB Conc 33.8 g/dL (31.5-36.5); Mean Corpuscular Volume 96 fL (80-100); Mean Platelet Volume 10.6 fL (9.1-12.4); NEUTROPHILS ABSOLUTE AUTO 6.45 K/mm3 (1.96-9.15); NEUTROPHILS PERCENT AUTO 68 % (41-73); Platelet Count 245 K/mm3 (150-400); RDW Coefficient Variation 14.3 % (11.7-14.2); RDW Standard Deviation 49.9 fL (35.1-46.3); Red Blood Cell Count 2.12 M/mm3 (4.30-5.90); White Blood Cell Count 9.45 K/mm3 (4.00-11.30)
[2021-03-25 04:49] LABS: Magnesium, Blood 1.8 mg/dL (1.6-2.4)
[2021-03-25 04:58] LABS: Albumin, Blood 1.9 g/dL (3.4-5.0); Anion Gap 7 mmol/L (6-16); Blood Urea Nitrogen 64 mg/dL (8-24); Bun/Creatinine Ratio 6.2 (12.0-20.0); CO2, Blood 27 mmol/L (21-32); Calcium, Blood 7.4 mg/dL (8.5-10.1); Chloride, Blood 101 mmol/L (98-108); Glomerular Filtration Rate 5 (60-); Glucose, Blood 248 mg/dL (70-99); Phosphorus, Blood 5.5 mg/dL (2.5-4.9); Potassium, Blood 4.4 mmol/L (3.5-5.5); Sodium, Blood 135 mmol/L (136-145)
--- NOTE | 2021-03-25 05:31 | NUR ---
SHIFT SUMMARY NO ACUTE CHANGES THIS SHIFT. PT AXO. REMAINS IN SR, INT HTN NOTED, MEDS PER EMAR. EFFECTIVE AT BRINGING DOWN BP TO ACCEPTABLE LEVELS. PT REMAINS ON RA. PT RECEIVING PERITONEAL DIALYSIS T/O SHIFT, DENNIS DOWNEY SET UP AND ADMINISTERED. SWEEPER DRIVER PULLED SAMPLE FROM PD PORT FOR TESTING FOR INFECTION. PT STATES REPORTED ABD PAIN IS ASSOCIATED WITH HICCUPING VS WITH DIALYSIS. PT STRAIGHT CATHED FOR 400MLS THIS SHIFT. PT STATES NOT HAVING AN ISSUE VOIDING IN THE PAST, SAMPLE CONTAMINATED FOR URINE SAMPLE.. WILE NEED TO GET ANOTHER. OTHERWISE, PT HAS SLEPT T/O MAJORITY OF SHIFT. WCTM.
--- NOTE | 2021-03-25 17:18 | NUR ---
DIALYSIS-PD PT MORE AWAKE TODAY. HIS DAUGHTER IN THE ROOM TRYING TO FEED HIM. HE APPEARS WEAK. PD TX STARTED PER PROTOCAL. WILL CALL THE INSTRUMENT ASSEMBLER RN AND DOES ALARMS WITH THEM.
--- NOTE | 2021-03-25 17:24 | NUR ---
SHIFT SUMMARY NO ACUTE EVENTS THIS SHIFT. PATIENT IS ALERT AND ORIENTED, CALLS APPROPRIATELY. PT IS COOPERATIVE WITH CARE, BUT APPEARS VERY WITHDRAWN. TOLERATING ROOM AIR WELL. PT STATES THAT HICCUPS ARE PRESENT AT TIMES, BUT SIGNIFICANTLY LESS FREQUENT THAN YESTERDAY. CBG CHECKED Q4, NO BOLUS DOSES OF INSULIN NEEDED THIS SHIFT. PT STATES PAIN IS MINIMAL, DECLINES OFFERS FOR PAIN MEDICATION. PATIENT STATES HE HAS NOT HAD A BOWEL MOVEMENT SINCE HOSPITAL ADMISSION. PT IS A X1 ASSIST WITH WALKER. PT WORKED WITH PT/OT THIS SHIFT. PT'S DAUGHTER VISITED THIS AFTERNOON. PT HAS NOT VOIDED THIS SHIFT, BLADD ER SCAN DONE AND [address] AREVALO ASKED TO HAVE THIS RN RELAY REQUEST FOR BOWEL CARE MEDS AND WHEN TO RESTART HOME PLAVIX DOSE TO HOSPITALIST SERVICE. THIS RN SPOKE WITH DR. DUMONT WHO GAVE BOWEL CARE MEDICATION ORDERS, STATED THAT PLAVIX WOULD CONTINUE TO BE HELD UNTIL AFTER H&H STABLE. PT WAS HYPERTENSIVE AT TIMES, MEDICATED PER EMAR, DR. DUMONT AWARE.
[2021-03-26 04:07] LABS: BASOPHILS ABSOLUTE AUTO 0.03 K/mm3 (0.00-0.23); BASOPHILS PERCENT AUTO 1 % (0-2); EOSINOPHILS ABSOLUTE AUTO 0.24 K/mm3 (0.00-0.68); EOSINOPHILS PERCENT AUTO 4 % (0-6); Hematocrit 23.7 % (37.0-53.0); Hemoglobin 8.2 g/dL (13.5-17.5); IMMATURE GRAN ABSOLUTE AUTO 0.03 K/mm3 (0.00-0.10); IMMATURE GRAN PERCENT AUTO 1 % (0-1); LYMPHOCYTES ABSOLUTE AUTO 1.37 K/mm3 (0.84-5.20); LYMPHOCYTES PERCENT AUTO 24 % (21-46); MONOCYTES ABSOLUTE AUTO 0.75 K/mm3 (0.16-1.47); MONOCYTES PERCENT AUTO 13 % (4-13); Mean Corpuscular HGB 32.3 pg (26.0-34.0); Mean Corpuscular HGB Conc 34.6 g/dL (31.5-36.5); Mean Corpuscular Volume 93 fL (80-100); Mean Platelet Volume 10.5 fL (9.1-12.4); NEUTROPHILS ABSOLUTE AUTO 3.34 K/mm3 (1.96-9.15); NEUTROPHILS PERCENT AUTO 58 % (41-73); Platelet Count 214 K/mm3 (150-400); RDW Coefficient Variation 15.2 % (11.7-14.2); RDW Standard Deviation 52.1 fL (35.1-46.3); Red Blood Cell Count 2.54 M/mm3 (4.30-5.90); White Blood Cell Count 5.76 K/mm3 (4.00-11.30)
[2021-03-26 04:35] LABS: Magnesium, Blood 1.8 mg/dL (1.6-2.4)
[2021-03-26 04:39] LABS: Alanine Aminotransfer (ALT/SGP 19 U/L (12-78); Albumin, Blood 1.7 g/dL (3.4-5.0); Albumin/Globulin Ratio 0.6 (0.8-1.8); Alk Phos 46 U/L (50-136); Anion Gap 6 mmol/L (6-16); Aspartate Aminotrans (AST/SGOT 19 U/L (12-37); Bilirubin, Direct <0.1 mg/dL (0.0-0.3); Bilirubin, Indirect Unable to Calculate mg/dL (0.1-0.7); Bilirubin, Total 0.2 mg/dL (0.1-1.0); Blood Urea Nitrogen 59 mg/dL (8-24); CO2, Blood 29 mmol/L (21-32); Calcium, Blood 7.3 mg/dL (8.5-10.1); Chloride, Blood 103 mmol/L (98-108); Creatinine, Blood 9.88 mg/dL (0.60-1.20); Glomerular Filtration Rate 5 (60-); Glucose, Blood 160 mg/dL (70-99); Phosphorus, Blood 5.3 mg/dL (2.5-4.9); Potassium, Blood 4.1 mmol/L (3.5-5.5); Sodium, Blood 138 mmol/L (136-145); Total Protein, Blood 4.7 g/dL (6.4-8.2)
--- NOTE | 2021-03-26 05:23 | NUR ---
SHIFT SUMMARY NO ACUTE CHANGES THIS SHIFT. VSS EXCEPT INSTANCE OF SEVERE HTN, MEDS PER EMAR, SBP REMAINING <150 POST ADMINISTRATION. PERITONEAL DIALYSIS T/O NIGT, NO COMPLICATIONS NOTED. RETAINING URINE PER BLADDER SCAN, WILL STRAIGHT CATH PER ORDERS. PT PRESENTS WITH LESS HICCUPS THIS SHIFT VS LAST NOC SHIFT. OTHERWISE, CONTINUING WITH Q4 CBGS WITH BOLUS DOSING INSULIN FROM PT'S INSULIN PUMP. OTHERWISE, PT RESTING T/O SHIFT. WCTM.
[2021-03-26 06:57] LABS: Source, Urine Clean Catch
[2021-03-26 07:09] LABS: Appearance, Urine Hazy (Clear); Bilirubin, Urine Neg (Neg); Blood, Urine 4+ (Neg); Color, Urine Yellow (P-Yellow); Glucose Qualitative, Urine 3+ (Neg); Ketones, Urine Neg (Neg); Leukocyte Esterase, Urine 1+ (Neg); Nitrite, Urine Neg (Neg); Protein, Urine 4+ (Neg); Urobilinogen, Urine NORM (Normal)
[2021-03-26 07:22] LABS: Red Blood Cells, Urine 25-50 /hpf (0-2); Squamous Epithelial Cells Few /hpf (Few)
[2021-03-26 07:23] LABS: Bacteria Few /hpf
--- NOTE | 2021-03-26 07:33 | NUR ---
UPDATED THIS AM
--- NOTE | 2021-03-26 07:53 | NUR ---
PATIENT RESTING IN BED BUT WAKENS EASILY TO ORIENT. OVERNIGHT CCPD COMPLETE. PATIENT DISCONNECTED AND CATHETER CAPPED WITH NEW MINI-CAP. CYCLER STRIPPED AND CLEANED.
[2021-03-26 09:11] LABS: Percent Saturation 45.1 % (20.0-50.0)
--- NOTE | 2021-03-26 18:17 | NUR ---
THIS AM, FSBS LOW IN THE 60s. PT'S INSULIN PUMP WAS PAUSED AND PT ENCOURAGED TO EAT. FSBS SLOWLY DIANNA UP ABOVE 150 AROUND LUNCH TIME AND INSULIN PUMP WAS RESUMED. PT HAD A SUCESSFUL LARGE BOWEL MOVEMENT TODAY WITH OCCULT STOOL SENT TO LAB PER MD ORDERS. PT UP TO CHAIR FOR MOST OF THE AFTERNOON, PT ABLE TO AMBULATE A SHORT DISTANCE IN ROOM WITH FWW AND STANDBY ASSIST. NO ACUTE EVENTS. VSS. PT'S UPDATED ON PROGRESS VIA TELEPHONE. WILL CONTINUE TO MONITOR AND REPORT OFF TO TYLER MONTEMAYOR.
--- NOTE | 2021-03-26 19:17 | NUR ---
PATIENT SITTING CHAIR / AWKE AND ALERT. TRANSFERED BACK TO BED WITH WALKER PRIOR TO START OF OVERNIGHT CCPD THERAPY. CYCLER STRUNG, PRIMED AND PROGRAMMED PER DR AREVALO'S RX. EXIT SITE CARE DONE WHILE CYCLER PRIMING. SITE CLEAR, DRY AND NON-TENDER. NEW STERILE DRESSING APPLIED WITH 3 STARIN RELIEFS. WHEN PRIME COMPLETE, THERAPY STARTED. PATIENT OBSERVED THROUGH INITIAL DRAIN AND START OF FILL #1 AND NO ADVERSE S/S REPORTED BY PATIENT OR OBSERVED BY THIS RN. PCU STAFF AWARE OF OVERNIGHT THERAPY IN PROGRESS.
--- NOTE | 2021-03-27 06:13 | NUR ---
SHIFT SUMMARY NO ACUTE CHANGES THIS SHIFT. PT A+OX4. DROSWY AND QUIET THROUGHOUT EVENING. CLONIDINE GIVEN AT 0445 FOR BP OF 176/75. VS OTHERWISE STABLE. CBGS Q4H AND INSULIN MANAGED BY PT WITH PUMP IN RLQ. PT UNDERWENT PERITONEAL DIALYSIS WITH NO COMPLICATIONS THIS EVENING. PT LEFT IN BED SLEEPING WITH CALL ALARM AT SIDE.
[2021-03-27 09:19] LABS: BASOPHILS ABSOLUTE AUTO 0.04 K/mm3 (0.00-0.23); BASOPHILS PERCENT AUTO 1 % (0-2); EOSINOPHILS ABSOLUTE AUTO 0.42 K/mm3 (0.00-0.68); EOSINOPHILS PERCENT AUTO 8 % (0-6); Hemoglobin 9.4 g/dL (13.5-17.5); IMMATURE GRAN ABSOLUTE AUTO 0.02 K/mm3 (0.00-0.10); IMMATURE GRAN PERCENT AUTO 0 % (0-1); LYMPHOCYTES ABSOLUTE AUTO 1.12 K/mm3 (0.84-5.20); LYMPHOCYTES PERCENT AUTO 22 % (21-46); MONOCYTES ABSOLUTE AUTO 0.56 K/mm3 (0.16-1.47); MONOCYTES PERCENT AUTO 11 % (4-13); Mean Corpuscular HGB 31.5 pg (26.0-34.0); Mean Corpuscular HGB Conc 33.6 g/dL (31.5-36.5); Mean Corpuscular Volume 94 fL (80-100); Mean Platelet Volume 10.5 fL (9.1-12.4); NEUTROPHILS ABSOLUTE AUTO 3.05 K/mm3 (1.96-9.15); NEUTROPHILS PERCENT AUTO 59 % (41-73); Platelet Count 226 K/mm3 (150-400); RDW Coefficient Variation 14.6 % (11.7-14.2); RDW Standard Deviation 50.5 fL (35.1-46.3); Red Blood Cell Count 2.98 M/mm3 (4.30-5.90); White Blood Cell Count 5.21 K/mm3 (4.00-11.30)
[2021-03-27 09:58] LABS: Calcium, Blood 7.3 mg/dL (8.5-10.1); Creatinine, Blood 9.98 mg/dL (0.60-1.20); Potassium, Blood 4.6 mmol/L (3.5-5.5)
--- NOTE | 2021-03-27 10:05 | NUR ---
PATIENT RESTING QUIETLY THIS AM UPON ENTERING ROOM. OVERNIGHT CCPD COMPLETE. PATIENT DISCONNECTED AND CAPPED. CYCLER STRIPPED AND CLEANED.
[2021-03-27 10:20] LABS: Stool Occult Blood Guaiac 1 Neg (Neg)
--- NOTE | 2021-03-27 17:00 | NUR ---
SHIFT SUMMARY PT IS A/O X4, SBA UP TO BATHROOM. PT TOLERATING PO INTAKE AND VOIDING. CONTINUOUS GLUCOSE MONITOR IN USE BY PT. HAS NOT REQUIRED ADDITIONAL INSULIN TODAY. PT HAD SHOWER TODAY AND HAS BEEN UP IN CHAIR FOR THE AFTERNOON. WAS ABLE TO VISIT PT THIS AFTEROON WELL. NO ACUTE CHANGES TODAY.
--- NOTE | 2021-03-27 19:39 | NUR ---
PATIENT IN BED / AWAKE / ALERT AND COMFORTABLE WATCHING TV. CYCLER STRUNG, PROGRAMMED AND PRIMED PER DR AREVALO'S ORDER. WHEN PRIME COMPLETE, PATIENT AESEPTICALLY CONNECTED AND THERAPY STARTED. NEW EXIT SITE DRESSING DONE THIS AFTERNOON STILL DRY AND INTACT SO NOT DISTURBED. CYCLER AND PATIENT OBSERVED THROUGH INITIAL DRAIN AND START OF FILL#1 WITHOUT SIGNS OR REPORT OF DISCOMFORT.
--- NOTE | 2021-03-28 04:53 | NUR ---
SHIFT SUMMARY PT IS ALERT AND ORIENTED X4. BP HAS BEEN ELEVATED AND MEDICATED PER EMAR; OTHER VITALS ARE STABLE. PT IS ON ROOM AIR. PT DENIES CHEST PAIN. PD IS DONE IN ROOM DURING EVENING AND PT IS TOLERATED WELL. CALL LIGHT IS WITHIN REACH.
[2021-03-28 05:30] LABS: Albumin, Blood 1.7 g/dL (3.4-5.0); Albumin/Globulin Ratio 0.5 (0.8-1.8); Bilirubin, Total 0.2 mg/dL (0.1-1.0); Bun/Creatinine Ratio 6.4 (12.0-20.0); Calcium, Blood 7.4 mg/dL (8.5-10.1); Creatinine, Blood 9.2 mg/dL (0.60-1.20); Globulin, Blood 3.1 g/dL (2.2-4.0); Potassium, Blood 4.3 mmol/L (3.5-5.5); Total Protein, Blood 4.8 g/dL (6.4-8.2)
--- NOTE | 2021-03-28 07:22 | NUR ---
PT HAS 630 IN BLADDER AFTER BLADDER SCAN. PT WAS UNABLE TO URINATE DURING WINE SALES REPRESENTATIVE. PT WAS NOTIFIED OF OF ORDERS. PT NOTIFIED THIS NURSE TO CALL HIS HIS BEFORE ANYTHING WAS DONE BECAUSE "SHE IS A NURSE."
--- NOTE | 2021-03-28 08:49 | NUR ---
DIALYSIS-PD PT DC'ED FROM PD TX PER PROTOCAL. PT MORE ALERT AND AWAKE THAN THE LAST TIME I SAW HIM. HE WAS VERY UNHAPPY THOUGH. SAID THEY KEEP FINDING THINGS WRONG WITH HIM. ID [id number] ML, UF 253 SOLUTION CLEAR. PT HAS NO C/O AT THIS TIME CONCERNING PD TX. SITE WNL
[2021-03-28] MEDS ORDERED: CEFP200 PO ×2 (12:20)
[2021-03-28] MEDS ORDERED: AZIT500 PO ×2 (12:20)
[2021-03-28] MEDS ORDERED: Catapres0.2 MG PO (12:21)
[2021-03-28] MEDS ORDERED: ARANESP40 MCG/0.1 SC ×2 (12:22)
[2021-03-28] MEDS ORDERED: OMEP20ER PO ×2 (12:23)
[2021-03-28] MEDS ORDERED: VISBIOME 112.51 EACH PO ×2 (12:23)
[2021-03-28] MEDS ORDERED: ONDA4 PO ×2 (12:24)
[2021-03-28] MEDS ORDERED: TRAM50 PO ×2 (12:25)
[2021-03-28] MEDS ORDERED: FURO40 PO (13:38)
--- NOTE | 2021-03-28 17:16 | NUR ---
SHIFT SUMMARY PT A&Ox4; CALM AND COOPERATIVE WITH CARE. TEARFUL AT TIMES. PT RESTING IN BED. BLADDER SCAN PRIOR TO SHIFT CHANGE >600, PT UNABLE TO VOID; SPOUSE REQUESTING A CALL REGARDING STRAIGHT CATH VS REID CATH; NOTIFIED DR LARA; CONTINUE WITH STRAIGHT CATH ORDER; HAD PT ATTEMPT TO VOID STANDING PT HAD 400cc; POST VOID BLADDER SCAN 297; NOTIFIED DR LARA AND SPOUSE. PT DENIES PAIN, SOB, [place] AND DIZZINESS. UNABLE TO GIVE IV ANTIOBIOTIC PIV NOT PATENT THIS AM; 2 ATTEMPTS, NOTIFIED DR LARA, NEW ORDERS TO HOLD IV ANTIBIOTICS. SPOUSE EXPRESSES CONCERNS REGARDING DISCHARGE TO THIS RN, REGARDING ABILITY TO VOID, NEW ORDERS TO DISCHARGE WITH STRAIGHT CATH UNTIL FOLLOW UP WITH UROLOGY ON SUNDAY. BP TRENDING DOWN T/O SHIFT; VSS. PT AND SPOUSE EDUCATED ON DISCHARGE INSTRUCTIONS, FOLLOW UP APPOINTMENTS AND MEDICATIONS. [facility] PER [facility] REQUEST; PT SPOUSE WENT TO [facility] TO ENDOCRINOLOGY TEACHER PRIOR TO DISCHARGE. SPOUSE SPOKE WITH DR LARA T/O DAY REGARDING ABILITY TO DISCHARGE HOME. PT LEFT ROOM VIA WHEELCHAIR AT 1652.
[2021-03-29] MEDS ORDERED: ADALAT CC60 M1 PO (15:46)
[2021-03-29] MEDS ORDERED: PANTOPRAZOLE SO40 M2 PO ×2 (15:47)
[2021-03-29] MEDS ORDERED: Calcium Acetat667 MG PO ×2 (16:26)
== END 2021-03-28 16:52 | disposition home health service (06) | DRG 637 ==
LOC: ER 18:54 → PCU 18:55
PROVIDERS: Emergency Medicine; Family Medicine; Internal Medicine; ADMIT Family Medicine
PROC: 30233N1 Transfusion of Nonautologous Red Blood Cells into Peripheral Vein, Percutaneous Approach (ICD-10-PCS; principal; 2021-03-25)
DX: E10.649 Type 1 diabetes mellitus with hypoglycemia without coma (principal); G93.41 Metabolic encephalopathy; J18.9 Pneumonia, unspecified organism; I12.0 Hypertensive chronic kidney disease with stage 5 chronic kidney disease or end stage renal disease; R71.0 Precipitous drop in hematocrit; Z20.822 Contact with and (suspected) exposure to COVID-19; R33.9 Retention of urine, unspecified; R06.6 Hiccough; I16.0 Hypertensive urgency; E10.22 Type 1 diabetes mellitus with diabetic chronic kidney disease; N18.6 End stage renal disease; E87.5 Hyperkalemia; D63.1 Anemia in chronic kidney disease; E10.42 Type 1 diabetes mellitus with diabetic polyneuropathy; K59.00 Constipation, unspecified; E78.5 Hyperlipidemia, unspecified; E10.65 Type 1 diabetes mellitus with hyperglycemia; D72.829 Elevated white blood cell count, unspecified; Z79.02 Long term (current) use of antithrombotics/antiplatelets; Z79.4 Long term (current) use of insulin; Z99.2 Dependence on renal dialysis; Z86.73 Personal history of transient ischemic attack (TIA), and cerebral infarction without residual deficits; Z79.899 Other long term (current) drug therapy; Z87.891 Personal history of nicotine dependence; Z98.890 Other specified postprocedural states
CPT/HCPCS: 36415; 36430; 51701; 70450; 71045; 71046; 74176; 80048; 80053; 80069; 81001; 82140; 82248; 82272; 82728; 82947; 83540; 83550; 83605; 83735; 84100; 84145; 84439; 84443; 85025; 86850; 86900; 86901; 86923; 87040; 87086; 87205; 89051; 93005; 93010; 96372; 96374-59; 96375; 96376; 97110; 97116; 97162; 97165; 97530; 97535; 99285-25; A9270; G0257; G0378; G0480; J0360; J0696; J0881; J1644; J2405; J7030; J7042; P9016; U0004

== ENCOUNTER 2021-03-29 14:30 | Inpatient (IN) | payer OTHER ==
[~2021-03-29] VITALS: Ht 188 cm; Wt 84.3 kg
[~2021-03-29 14:30] MED LIST changes: +ARANESP40 MCG/0.1 SC; +CEFP200 PO; +Catapres0.2 MG PO; +VISBIOME 112.51 EACH PO
[2021-03-29 15:38] LABS: Glucose, Blood 762 mg/dL (70-99)
[2021-03-29] MEDS ORDERED: ADALAT CC60 M1 PO (15:46)
[2021-03-29] MEDS ORDERED: PANTOPRAZOLE SO40 M2 PO ×2 (15:47)
[2021-03-29] MEDS ORDERED: Calcium Acetat667 MG PO ×2 (16:26)
[2021-03-29 16:38] LABS: Base Excess Venous -3.5 mmol/L; Bicarbonate Venous 21.7 mmol/L (24.0-30.0); pH Blood Venous 7.36 (7.34-7.37)
[2021-03-29 16:54] LABS: BASOPHILS ABSOLUTE AUTO 0.02 K/mm3 (0.00-0.23); BASOPHILS PERCENT AUTO 0 % (0-2); EOSINOPHILS ABSOLUTE AUTO 0.01 K/mm3 (0.00-0.68); EOSINOPHILS PERCENT AUTO 0 % (0-6); Hematocrit 26.5 % (37.0-53.0); Hemoglobin 8.7 g/dL (13.5-17.5); IMMATURE GRAN ABSOLUTE AUTO 0.08 K/mm3 (0.00-0.10); IMMATURE GRAN PERCENT AUTO 1 % (0-1); LYMPHOCYTES ABSOLUTE AUTO 0.95 K/mm3 (0.84-5.20); LYMPHOCYTES PERCENT AUTO 9 % (21-46); MONOCYTES ABSOLUTE AUTO 0.68 K/mm3 (0.16-1.47); MONOCYTES PERCENT AUTO 6 % (4-13); Mean Corpuscular HGB 31.6 pg (26.0-34.0); Mean Corpuscular HGB Conc 32.8 g/dL (31.5-36.5); Mean Corpuscular Volume 96 fL (80-100); Mean Platelet Volume 11.1 fL (9.1-12.4); NEUTROPHILS ABSOLUTE AUTO 8.82 K/mm3 (1.96-9.15); NEUTROPHILS PERCENT AUTO 84 % (41-73); Platelet Count 272 K/mm3 (150-400); RDW Coefficient Variation 14.8 % (11.7-14.2); RDW Standard Deviation 51.6 fL (35.1-46.3); Red Blood Cell Count 2.75 M/mm3 (4.30-5.90); White Blood Cell Count 10.56 K/mm3 (4.00-11.30)
[2021-03-29 17:40] LABS: Troponin I 0.148 ng/mL (0.000-0.040)
[2021-03-29 17:54] LABS: Albumin, Blood 1.9 g/dL (3.4-5.0); Albumin/Globulin Ratio 0.7 (0.8-1.8); Bilirubin, Total 0.3 mg/dL (0.1-1.0); Calcium, Blood 7.2 mg/dL (8.5-10.1); Creatinine, Blood 9.13 mg/dL (0.60-1.20); Globulin, Blood 2.9 g/dL (2.2-4.0); Total Protein, Blood 4.8 g/dL (6.4-8.2)
[2021-03-29 17:56] LABS: Potassium, Blood 6.3 mmol/L (3.5-5.5)
[2021-03-29 22:54] LABS: Calcium, Blood 7.1 mg/dL (8.5-10.1); Creatinine, Blood 9.16 mg/dL (0.60-1.20); Potassium, Blood 6.5 mmol/L (3.5-5.5)
--- NOTE | 2021-03-29 23:27 | NUR ---
DIALYSIS-PTD PT ON HOLD IN ED. THERE ARE NO ICU BEDS AVAILABLE AT THIS TIME. DR AREVALO CALLED WITH PD ORDERS FOR THE PT. THE TX WAS SETUP IN THE ED ROOM. HIS WAS IN THE ROOM WELL. PT WAS ALERT AND ORIENTED. DR AREVALO ORDERED 1.5% DEXTROSE BAGS DUE TO HIS MANOHAR BLOOD SUGARS. SHE WAS MORE INTERESTED IN GETTING HIS K+ DOWN THEN FLUID REMOVAL AT THIS TIME. HIS NORMAL IS 1.5% AND 2.5% DEXTROSE BAGS. 4 EXCHANGES OF 2500 ML, 2 HOURS TOLALING 9:20 HOUR TX. STARTED AT 2236. DRESSING CHANGE DONE PER PROTOVAL. SITE CLEAR AND FLUID LOOKED CLEAR. REPORT BIVEN TO ED RN ON DUTY.
[2021-03-30 01:11] LABS: Glucose, Blood 781 mg/dL (70-99)
[2021-03-30 01:24] LABS: Bun/Creatinine Ratio 7.8 (12.0-20.0); Calcium, Blood 6.8 mg/dL (8.5-10.1); Creatinine, Blood 9.02 mg/dL (0.60-1.20); Potassium, Blood 5.3 mmol/L (3.5-5.5)
[2021-03-30 03:33] LABS: Glucose, Blood 704 mg/dL (70-99)
[2021-03-30 03:59] LABS: Bun/Creatinine Ratio 7.8 (12.0-20.0); Creatinine, Blood 8.82 mg/dL (0.60-1.20); Potassium, Blood 4.6 mmol/L (3.5-5.5)
[2021-03-30 04:38] LABS: Glucose, Blood 665 mg/dL (70-99)
[2021-03-30 05:39] LABS: Glucose, Blood 624 mg/dL (70-99)
[2021-03-30 05:58] LABS: BASOPHILS ABSOLUTE AUTO 0.03 K/mm3 (0.00-0.23); BASOPHILS PERCENT AUTO 0 % (0-2); EOSINOPHILS ABSOLUTE AUTO 0.14 K/mm3 (0.00-0.68); EOSINOPHILS PERCENT AUTO 2 % (0-6); Hematocrit 22.5 % (37.0-53.0); Hemoglobin 7.6 g/dL (13.5-17.5); IMMATURE GRAN ABSOLUTE AUTO 0.06 K/mm3 (0.00-0.10); IMMATURE GRAN PERCENT AUTO 1 % (0-1); LYMPHOCYTES ABSOLUTE AUTO 1.81 K/mm3 (0.84-5.20); LYMPHOCYTES PERCENT AUTO 21 % (21-46); MONOCYTES PERCENT AUTO 11 % (4-13); Mean Corpuscular HGB 31.9 pg (26.0-34.0); Mean Corpuscular HGB Conc 33.8 g/dL (31.5-36.5); Mean Corpuscular Volume 95 fL (80-100); Mean Platelet Volume 10.6 fL (9.1-12.4); NEUTROPHILS ABSOLUTE AUTO 5.72 K/mm3 (1.96-9.15); NEUTROPHILS PERCENT AUTO 65 % (41-73); Platelet Count 252 K/mm3 (150-400); RDW Coefficient Variation 14.8 % (11.7-14.2); RDW Standard Deviation 50.1 fL (35.1-46.3); Red Blood Cell Count 2.38 M/mm3 (4.30-5.90); White Blood Cell Count 8.76 K/mm3 (4.00-11.30)
[2021-03-30 06:36] LABS: Glucose, Blood 563 mg/dL (70-99)
[2021-03-30 06:51] LABS: Calcium, Blood 7.1 mg/dL (8.5-10.1); Potassium, Blood 4.3 mmol/L (3.5-5.5)
[2021-03-30 06:57] LABS: Bun/Creatinine Ratio 7.9 (12.0-20.0); Creatinine, Blood 8.71 mg/dL (0.60-1.20)
[2021-03-30 08:11] LABS: Glucose, Blood 481 mg/dL (70-99)
[2021-03-30 10:01] LABS: Bun/Creatinine Ratio 7.9 (12.0-20.0); Calcium, Blood 7.3 mg/dL (8.5-10.1); Creatinine, Blood 8.65 mg/dL (0.60-1.20); Potassium, Blood 4.2 mmol/L (3.5-5.5)
[2021-03-30] MEDS ORDERED: AZIT250 PO ×2 (13:35)
[2021-03-30] MEDS ORDERED: Acetaminophen325 M1 PO ×2 (13:37)
[2021-03-30] MEDS ORDERED: MIRALAX17 GM PO ×2 (13:38)
[2021-03-30] MEDS ORDERED: CALCITRIOL0.5 MC1 PO ×2 (13:39)
[2021-03-30] MEDS ORDERED: CLOP75 PO ×2 (13:40)
[2021-03-30] MEDS ORDERED: CEFP200 PO ×2 (13:41)
[2021-03-30] MEDS ORDERED: VISBIOME 112.51 EACH PO ×2 (13:42)
[2021-03-30] MEDS ORDERED: ONDA4 PO ×2 (13:43)
--- NOTE | 2021-03-30 16:49 | NUR ---
PT IS ADMITTED FOR HYPERKALEMIA. PT AOX4; 1-2 P ASSISTS. APPARENTLY THIS PT HAS BEEN RECENTLY DISCHARGED THIS WEEK AND CAME BACK FOR HIGH POTASSIUM AND HIGH BLOOD SUGAR WHICH NOW RESOLVED. PT HAS INSULIN PUMP AND HE HAS BEEN VERIFIED TO USE IT. PT STATED HE CHECKED HIS CBG BEFORE MEALS AND GIVE HIMSELF A DOSE. SIGNED CONSENT FORM AND EVALUATED WITH YARN WRAPPER THAT THIS PT CAN USE IT. PT IS ON RA AND NS ON TELE. DENIES PAIN OR CP. PT WILL HAVE PERITONEAL DIALYSIS TOMORROW. DR AREVALO HAS BEEN CONSULTED. BED IS IN THE LOWEST POSITION AND CALL LIGHT WITHIN REACH
--- NOTE | 2021-03-30 18:34 | NUR ---
SHIFT SUMMARY PT AOX4; DENIES PAIN. CBG LOW AND DID NOT NEED COVERAGE ON MY SHIFT. PT USES HIS INSULIN PUMP AND SEE EMAR FOR MORE DETAILS. PT IS NOW AC/HS. BLADDER SCAN Q SHIFT PER DR ORDER. PT WILL HAVE DIALYSIS TONIGHT. BP ELAVATED AND MEDS GIVEN THIS AFTERNNOON. BED IS IN THE LOWEST POSITION AND CALL LIGHT WITHIN REACH
--- NOTE | 2021-03-30 22:48 | NUR ---
2114 TO ROOM 336 FOR PD. PT ASLEEP, DR AREVALO CALLED WITH ORDERS FOR PATIENT. PT IS TO RESUME HIS NORMAL RX OF 1 1.25% & 1 2.5%. 4 EXCHANGES OF 2200 ML TOTALING 9.2 HR TX. STARTED AT 2144. PT IS PLEASANT AND QUIET. SITE CLEAR AND FLUID APPEARS CLEAN. PT LENIN WELL. REPORT TO PERSONNEL COUNSELOR SIM. RADHA
[2021-03-31 05:33] LABS: Hematocrit 24.7 % (37.0-53.0); Hemoglobin 8.4 g/dL (13.5-17.5); Mean Corpuscular HGB 31.8 pg (26.0-34.0); Mean Corpuscular Volume 94 fL (80-100); Mean Platelet Volume 10.4 fL (9.1-12.4); NRBC ABSOLUTE 0.02 K/mm3 (0.00-0.02); NRBC Auto 0.3 /100 WBC (0.0-0.2); Platelet Count 262 K/mm3 (150-400); RDW Coefficient Variation 14.8 % (11.7-14.2); RDW Standard Deviation 49.5 fL (35.1-46.3); Red Blood Cell Count 2.64 M/mm3 (4.30-5.90); White Blood Cell Count 7.65 K/mm3 (4.00-11.30)
[2021-03-31 06:15] LABS: Bun/Creatinine Ratio 6.9 (12.0-20.0); Calcium, Blood 7.2 mg/dL (8.5-10.1); Creatinine, Blood 8.89 mg/dL (0.60-1.20); Potassium, Blood 4.3 mmol/L (3.5-5.5)
--- NOTE | 2021-03-31 06:52 | NUR ---
SHIFT SUMMARY PT IS A 60 Y/O MALE, ADMITTED FOR HYPERKALEMIA. HE IS A&O X 3, BEDREST. PT IS ESRD, PERITONEAL DIALYSIS WHICH RAN THROUGH THE NIGHT. NO C/O ACUTE PAIN, NAUSEA OR SOB. VITAL SIGNS STABLE. NO ACUTE CHANGES IN PT CONDITION NOTED. WILL CONTINUE TO MONITOR AND TREAT PER EMAR UNTIL HAND OFF TO DAY SHIFT RN.
[2021-03-31] MEDS ORDERED: NIFE60ER PO ×4 (14:08→14:23)
[2021-03-31] MEDS ORDERED: [UNRECOGNIZED DRUG - OTHER] PO ×2 (14:22)
[2021-03-31] MEDS ORDERED: METO25 PO ×2 (14:23)
[2021-03-31 15:51] LABS: Source, Urine Catheter
[2021-03-31 15:58] LABS: Appearance, Urine Clear (Clear); Bilirubin, Urine Neg (Neg); Blood, Urine 1+ (Neg); Color, Urine Yellow (P-Yellow); Glucose Qualitative, Urine 4+ (Neg); Ketones, Urine Neg (Neg); Leukocyte Esterase, Urine Neg (Neg); Nitrite, Urine Neg (Neg); Protein, Urine 4+ (Neg); Urobilinogen, Urine NORM (Normal)
[2021-03-31 16:55] LABS: Bacteria Mod /hpf; Red Blood Cells, Urine 0-2 /hpf (0-2); Squamous Epithelial Cells Rare /hpf (Few)
== END 2021-03-31 16:18 | disposition home health service (06) | DRG 637 ==
LOC: ER 14:30 → ERHOLD 14:37 → ER 14:37 → ERHOLD 22:03 → MEDS 03-30 13:21
PROVIDERS: Internal Medicine; Student in an Organized Health Care Education/Training Program; ADMIT Family Medicine
PROC: 3E1M39Z Irrigation of Peritoneal Cavity using Dialysate, Percutaneous Approach (ICD-10-PCS; principal; 2021-03-30)
DX: E10.65 Type 1 diabetes mellitus with hyperglycemia (principal); N18.6 End stage renal disease; J18.9 Pneumonia, unspecified organism; I12.0 Hypertensive chronic kidney disease with stage 5 chronic kidney disease or end stage renal disease; E87.1 Hypo-osmolality and hyponatremia; E87.5 Hyperkalemia; E78.5 Hyperlipidemia, unspecified; D63.1 Anemia in chronic kidney disease; E10.40 Type 1 diabetes mellitus with diabetic neuropathy, unspecified; E10.22 Type 1 diabetes mellitus with diabetic chronic kidney disease; E10.43 Type 1 diabetes mellitus with diabetic autonomic (poly)neuropathy; K31.84 Gastroparesis; I95.1 Orthostatic hypotension; R33.9 Retention of urine, unspecified; Z86.73 Personal history of transient ischemic attack (TIA), and cerebral infarction without residual deficits; Z98.890 Other specified postprocedural states; Z79.899 Other long term (current) drug therapy; E10.649 Type 1 diabetes mellitus with hypoglycemia without coma; Z99.2 Dependence on renal dialysis; Z79.4 Long term (current) use of insulin; Z87.891 Personal history of nicotine dependence
CPT/HCPCS: 36415; 71046; 80048; 80053; 81001; 82010; 82803; 82947; 83036; 84484; 85025; 85027; 87086; 93005; 93010; 96361; 96365; 96366; 96368; 99285-25; A9270; G0378; J0360; J0456; J0696; J0881; J1644; J1815; J2405; J7030; J7050

== ENCOUNTER 2021-04-03 15:36 | Emergency (ER) | payer OTHER ==
[~2021-04-03] VITALS: Ht 185.4 cm; Wt 76.2 kg
[~2021-04-03 15:36] MED LIST changes: +ADALAT CC60 M1 PO; +AZIT250 PO; +Acetaminophen325 M1 PO; +Calcium Acetat667 MG PO; +MIRALAX17 GM PO; +PANTOPRAZOLE SO40 M2 PO; +[UNRECOGNIZED DRUG - OTHER] PO
== END 2021-04-03 17:45 | disposition home or self-care (01) ==
LOC: ER 15:36
DX: E10.65 Type 1 diabetes mellitus with hyperglycemia (principal); Z96.41 Presence of insulin pump (external) (internal); Z87.891 Personal history of nicotine dependence; Z79.899 Other long term (current) drug therapy
CPT/HCPCS: 82947; 99284

== ENCOUNTER 2021-04-27 16:17 | Observation (INO) | payer OTHER ==
[~2021-04-27] VITALS: Ht 182.9 cm; Wt 75.2 kg
[2021-04-27 17:07] LABS: BASOPHILS ABSOLUTE AUTO 0.03 K/mm3 (0.00-0.23); BASOPHILS PERCENT AUTO 1 % (0-2); EOSINOPHILS ABSOLUTE AUTO 0.11 K/mm3 (0.00-0.68); EOSINOPHILS PERCENT AUTO 2 % (0-6); Hematocrit 32.2 % (37.0-53.0); Hemoglobin 11.1 g/dL (13.5-17.5); IMMATURE GRAN ABSOLUTE AUTO 0.03 K/mm3 (0.00-0.10); IMMATURE GRAN PERCENT AUTO 1 % (0-1); LYMPHOCYTES ABSOLUTE AUTO 1.52 K/mm3 (0.84-5.20); LYMPHOCYTES PERCENT AUTO 24 % (21-46); MONOCYTES ABSOLUTE AUTO 0.63 K/mm3 (0.16-1.47); MONOCYTES PERCENT AUTO 10 % (4-13); Mean Corpuscular HGB 31.9 pg (26.0-34.0); Mean Corpuscular HGB Conc 34.5 g/dL (31.5-36.5); Mean Corpuscular Volume 93 fL (80-100); Mean Platelet Volume 9.9 fL (9.1-12.4); NEUTROPHILS ABSOLUTE AUTO 4.06 K/mm3 (1.96-9.15); NEUTROPHILS PERCENT AUTO 64 % (41-73); Platelet Count 263 K/mm3 (150-400); RDW Coefficient Variation 14.2 % (11.7-14.2); RDW Standard Deviation 48.3 fL (35.1-46.3); Red Blood Cell Count 3.48 M/mm3 (4.30-5.90); White Blood Cell Count 6.38 K/mm3 (4.00-11.30)
[2021-04-27 17:23] LABS: Source, Urine Clean Catch
[2021-04-27 17:24] LABS: International Normalized Ratio 1.01; Prothrombin Time Results 10.9 Sec (9.7-11.5)
[2021-04-27 17:27] LABS: Appearance, Urine Clear (Clear); Bilirubin, Urine Neg (Neg); Blood, Urine 1+ (Neg); Color, Urine Yellow (P-Yellow); Glucose Qualitative, Urine 3+ (Neg); Ketones, Urine Neg (Neg); Leukocyte Esterase, Urine Neg (Neg); Nitrite, Urine Neg (Neg); Protein, Urine 4+ (Neg); Urobilinogen, Urine NORM (Normal)
[2021-04-27 17:31] LABS: Albumin/Globulin Ratio 0.6 (0.8-1.8); Bilirubin, Total 0.3 mg/dL (0.1-1.0); Bun/Creatinine Ratio 5.2 (12.0-20.0); Calcium, Blood 6.9 mg/dL (8.5-10.1); Creatinine, Blood 7.91 mg/dL (0.60-1.20); Free Thyroxine 1.2 ng/dL (0.70-1.60); Globulin, Blood 3.2 g/dL (2.2-4.0); Magnesium, Blood 1.6 mg/dL (1.6-2.4); Total Protein, Blood 5.2 g/dL (6.4-8.2)
[2021-04-27 17:33] LABS: Thyroid Stimulating Hormone 4.1 uIU/mL (0.360-4.800); Triiodothyronine, Free 1.7 pg/mL (2.18-3.98)
[2021-04-27 17:35] LABS: Bacteria Few /hpf; Red Blood Cells, Urine 0-2 /hpf (0-2); Squamous Epithelial Cells Not Seen /hpf (Few)
[2021-04-27] MEDS ORDERED: ATOR40TA PO (18:09)
[2021-04-27] MEDS ORDERED: Calcium Acetat667 MG PO (18:09)
[2021-04-27] MEDS ORDERED: VITAMIN D31000 UNI1 PO (18:10)
[2021-04-27] MEDS ORDERED: Catapres0.2 MG PO (18:10)
[2021-04-27] MEDS ORDERED: Prozac20 MG PO (18:11)
[2021-04-27] MEDS ORDERED: FURO40 PO (18:11)
[2021-04-27] MEDS ORDERED: CLOP75 PO (18:11)
[2021-04-27] MEDS ORDERED: NOVOLOG100 UNIT/2 (18:12)
[2021-04-27] MEDS ORDERED: NIFE60ER PO (18:13)
[2021-04-27] MEDS ORDERED: METO25 PO (18:13)
[2021-04-27] MEDS ORDERED: PANT40 PO (18:13)
[2021-04-27] MEDS ORDERED: TAMS.4ER PO (18:14)
[2021-04-27 20:10] LABS: Automated BF WBC Count 0.157 K/mm3 (0-999); Body Fluid WBC Count 157 /mm3 (0-999)
[2021-04-27 20:29] LABS: Glucose, Body Fluid 200 mg/dL; Lactate Dehydrogenase, Body Fl 38 U/L; Protein, Body Fluid 0.8 g/dL
[2021-04-27 20:33] LABS: Appearance, Body Fluid Clear (Clear); Color, Body Fluid No color (None-Yellow); RBC Count, Body Fluid 7 /mm3 (0-0)
[2021-04-27 20:57] LABS: Total Cell Count, Body Fluid 100
--- NOTE | 2021-04-27 21:49 | NUR ---
transfer report from Zuri MONTEMAYOR on 60 year old who has ESRD on peritoneal dialysis nightly per report & felt chilled & rectal temps were low per report responder to cherie lynn. Manuelline insulin pump not present on ER visit has at home. Nephrology consult with delay of nightly peritonela dialysis planned until AM Await admission.
[2021-04-27 22:06] LABS: Glucose, Blood 233 mg/dL (70-99)
[2021-04-27 23:25] LABS: Glucose, Blood 265 mg/dL (70-99)
[2021-04-28 02:38] LABS: Glucose, Blood 255 mg/dL (70-99)
--- NOTE | 2021-04-28 03:58 | NUR ---
60 year old [place] with ESRD sent by [facility] for hypoglycemia & waekness , hypothermia resolved in ER. PT uses home insulin pump which was removed at home. Serial lab drawn BGs in 200s. PT has 98 temps & is on room air. He has nephrology consult does nightly peritoneal dialysis which he did not have last night deffered by MD. called & updated she says 3rd admission in 1 month. Covid 19 negative. Has hypertension which was controlled by oral meds. OBS PT has pallative care consult.
[2021-04-28 06:06] LABS: BASOPHILS ABSOLUTE AUTO 0.04 K/mm3 (0.00-0.23); BASOPHILS PERCENT AUTO 1 % (0-2); EOSINOPHILS ABSOLUTE AUTO 0.27 K/mm3 (0.00-0.68); EOSINOPHILS PERCENT AUTO 4 % (0-6); Hematocrit 29.8 % (37.0-53.0); Hemoglobin 10.3 g/dL (13.5-17.5); IMMATURE GRAN ABSOLUTE AUTO 0.04 K/mm3 (0.00-0.10); IMMATURE GRAN PERCENT AUTO 1 % (0-1); LYMPHOCYTES ABSOLUTE AUTO 1.44 K/mm3 (0.84-5.20); LYMPHOCYTES PERCENT AUTO 21 % (21-46); MONOCYTES ABSOLUTE AUTO 0.88 K/mm3 (0.16-1.47); MONOCYTES PERCENT AUTO 13 % (4-13); Mean Corpuscular HGB 32.3 pg (26.0-34.0); Mean Corpuscular HGB Conc 34.6 g/dL (31.5-36.5); Mean Corpuscular Volume 93 fL (80-100); Mean Platelet Volume 10.3 fL (9.1-12.4); NEUTROPHILS ABSOLUTE AUTO 4.19 K/mm3 (1.96-9.15); NEUTROPHILS PERCENT AUTO 61 % (41-73); Platelet Count 249 K/mm3 (150-400); RDW Coefficient Variation 14.2 % (11.7-14.2); RDW Standard Deviation 48.5 fL (35.1-46.3); Red Blood Cell Count 3.19 M/mm3 (4.30-5.90); White Blood Cell Count 6.86 K/mm3 (4.00-11.30)
[2021-04-28 06:39] LABS: Albumin/Globulin Ratio 0.6 (0.8-1.8); Bilirubin, Total 0.4 mg/dL (0.1-1.0); Bun/Creatinine Ratio 5.3 (12.0-20.0); Calcium, Blood 7.5 mg/dL (8.5-10.1); Creatinine, Blood 10.3 mg/dL (0.60-1.20); Globulin, Blood 3.2 g/dL (2.2-4.0); Potassium, Blood 4.7 mmol/L (3.5-5.5); Total Protein, Blood 5.2 g/dL (6.4-8.2)
--- NOTE | 2021-04-28 07:57 | NUR ---
as patient was er hold last night, start of ccpd was deferred until patient recieved room assignment. Patient now in med floor room. Resting comfortably in no distress. Cycler set up per Rx for 2 cycles until approx 1230. Then patient will recieve regular overnight CCPD therapy tonight. exit site care done.
[2021-04-28 09:37] LABS: Glucose, Blood 231 mg/dL (70-99)
[2021-04-28 12:32] LABS: Glucose, Blood 343 mg/dL (70-99)
--- NOTE | 2021-04-28 12:45 | NUR ---
DAY EXCHANGE COMPLETE. PT AESEPTICALLY DISCONNECTED AND CAPPED. CYCLER STRIPPED AND CLEANED. PT NOW EATTING LUNCH. NO VERB NEEDS OR COMPLAINTS.
--- NOTE | 2021-04-28 15:13 | NUR ---
PT DISCHARGED THE PT VERBALIZED UNDERSTANDING OF THE DC INSTRUCTIONS. PT WAS REMINDED TO CALL HIS PCP TO SCHEDULE A FOLLOW UP APPOINTMENT. THE PT WAS TRANSFERED VIA WHEELCHAIR TO THE FRONT ACCOMPANIED BY AN RN TO CATCH HIS RIDE HOME. THE PT WAS ALERT AND BREATHING EASILY ON RA AT THE TIME OF DC
== END 2021-04-28 15:15 | disposition home or self-care (01) ==
LOC: ER 16:17 → MEDS 20:20
PROVIDERS: Physician Assistant; Student in an Organized Health Care Education/Training Program; ADMIT Hospitalist
DX: T68.XXXA Hypothermia, initial encounter (principal); E10.649 Type 1 diabetes mellitus with hypoglycemia without coma; I12.0 Hypertensive chronic kidney disease with stage 5 chronic kidney disease or end stage renal disease; E10.22 Type 1 diabetes mellitus with diabetic chronic kidney disease; N18.6 End stage renal disease; E10.42 Type 1 diabetes mellitus with diabetic polyneuropathy; E78.5 Hyperlipidemia, unspecified; F32.9 Major depressive disorder, single episode, unspecified; R33.9 Retention of urine, unspecified; Z99.2 Dependence on renal dialysis; Z79.4 Long term (current) use of insulin; Z87.891 Personal history of nicotine dependence
CPT/HCPCS: 36415; 51702; 71045; 80053; 81001; 82945; 82947; 83605; 83615; 83735; 84157; 84439; 84443; 84481; 84484; 85025; 85610; 85730; 87040; 87070; 87205; 89051; 93005; 93010; 96361-59; 96366; 96372; 96374-59; 99285-25; A9270; G0257; G0378; J1644; J2543; J7030; J7042

== ENCOUNTER 2021-06-23 09:36 | Inpatient (IN) | payer OTHER ==
[~2021-06-23] VITALS: Ht 185.4 cm; Wt 81.2 kg
[~2021-06-23 09:36] MED LIST changes: +NOVOLOG100 UNIT/2; +VITAMIN D31000 UNI1 PO
[2021-06-23 10:37] LABS: BASOPHILS ABSOLUTE AUTO 0.02 K/mm3 (0.00-0.23); BASOPHILS PERCENT AUTO 0 % (0-2); EOSINOPHILS ABSOLUTE AUTO 0.08 K/mm3 (0.00-0.68); EOSINOPHILS PERCENT AUTO 1 % (0-6); Hematocrit 24.5 % (37.0-53.0); Hemoglobin 8.4 g/dL (13.5-17.5); IMMATURE GRAN ABSOLUTE AUTO 0.06 K/mm3 (0.00-0.10); IMMATURE GRAN PERCENT AUTO 1 % (0-1); LYMPHOCYTES ABSOLUTE AUTO 0.78 K/mm3 (0.84-5.20); LYMPHOCYTES PERCENT AUTO 9 % (21-46); MONOCYTES ABSOLUTE AUTO 0.51 K/mm3 (0.16-1.47); MONOCYTES PERCENT AUTO 6 % (4-13); Mean Corpuscular HGB 31.9 pg (26.0-34.0); Mean Corpuscular HGB Conc 34.3 g/dL (31.5-36.5); Mean Corpuscular Volume 93 fL (80-100); Mean Platelet Volume 11.4 fL (9.1-12.4); NEUTROPHILS ABSOLUTE AUTO 7.04 K/mm3 (1.96-9.15); NEUTROPHILS PERCENT AUTO 83 % (41-73); Platelet Count 221 K/mm3 (150-400); RDW Coefficient Variation 13.8 % (11.7-14.2); RDW Standard Deviation 46.9 fL (35.1-46.3); Red Blood Cell Count 2.63 M/mm3 (4.30-5.90); White Blood Cell Count 8.49 K/mm3 (4.00-11.30)
[2021-06-23 11:17] LABS: International Normalized Ratio 1.05
[2021-06-23 11:35] LABS: Source, Urine Catheter
[2021-06-23 11:40] LABS: Albumin/Globulin Ratio 0.6 (0.8-1.8); Bilirubin, Total 0.4 mg/dL (0.1-1.0); Bun/Creatinine Ratio 7.3 (12.0-20.0); Calcium, Blood 7.7 mg/dL (8.5-10.1); Creatinine, Blood 9.33 mg/dL (0.60-1.20); Globulin, Blood 3.5 g/dL (2.2-4.0); Potassium, Blood 5.1 mmol/L (3.5-5.5); Total Protein, Blood 5.5 g/dL (6.4-8.2)
[2021-06-23 11:42] LABS: PCO2 Venous 48 mmHg (38-42); pH Blood Venous 7.36 (7.34-7.37)
[2021-06-23 11:43] LABS: Base Excess Venous 1.3 mmol/L; Bicarbonate Venous 25.4 mmol/L (24.0-30.0); PO2 Venous 126 mmHg (38-42)
[2021-06-23 11:51] LABS: Appearance, Urine Clear (Clear); Bilirubin, Urine Neg (Neg); Blood, Urine 1+ (Neg); Color, Urine Yellow (P-Yellow); Glucose Qualitative, Urine 4+ (Neg); Ketones, Urine Neg (Neg); Leukocyte Esterase, Urine Neg (Neg); Nitrite, Urine Neg (Neg); Protein, Urine 4+ (Neg); Urobilinogen, Urine NORM (Normal)
[2021-06-23 12:00] LABS: Bacteria Not Seen /hpf; Red Blood Cells, Urine 0-2 /hpf (0-2); Squamous Epithelial Cells Rare /hpf (Few); White Blood Cells, Urine 0-2 /hpf (0-5)
[2021-06-23 12:31] LABS: Influenza A, PCR NEGATIVE (NEGATIVE); Influenza B, PCR NEGATIVE (NEGATIVE); Resp Syncytial Virus, PCR NEGATIVE (NEGATIVE); SARS-Cov-2 (COVID-19) PCR, MMC NEGATIVE (NEGATIVE)
--- NOTE | 2021-06-23 16:15 | NUR ---
ARRIVED TO ICU 1550. PT DROWSY BUT ORIENTED TO SELF, PLACE AND TIME. AT BEDSIDE, UPDATED ON PLAN OF CARE. MOVES ALL EXTREMITIES. 9L 02 OXIMIZER. LUNG SOUNDS COARSE AND DIM. SR 70S, BP WNL. INSULIN GTT RUNNING AT 5ML ON ARRIVAL. TITRATING PER PROTOCOL.
--- NOTE | 2021-06-23 16:41 | NUR ---
STATES SHE DOES NOT BELIEVE PATIENT IS DEPRESSED OR AT RISK FOR SUICIDE. PATIENT UNAVAILIBLE FOR SUICIDE QUESTIONING AT THIS TIME.
[2021-06-23 17:07] LABS: Glucose, Blood 558 mg/dL (70-99)
[2021-06-23 18:06] LABS: Glucose, Blood 549 mg/dL (70-99)
--- NOTE | 2021-06-23 19:08 | NUR ---
SHIFT SUMMARY: PT RETURNED FROM WILDLIFE CONTROL OPERATOR. DIALYSIS CATHETER APPEARANCE WNL. CBGS STILL MID 500S INSULIN INFUSION NOW RUNNING 7UNITS/HR. HD RUNNING W PROJECT BUILDER. PER DR. AREVALO, CHECK CBG Q30MIN DURING DIALYSIS.
--- NOTE | 2021-06-23 19:30 | NUR ---
PATIENT REPORT RECEIVED FROM [facility] PATIENT AAOX1 SELF HEMODIALYSIS NURSE AT BEDSIDE NSR NOTED IN THE MONITOR BP 142/82, BS 138, O2 SAT 95 % WILL TO CONTINUE TO MONITOR
[2021-06-24 05:14] LABS: BASOPHILS ABSOLUTE AUTO 0.03 K/mm3 (0.00-0.23); BASOPHILS PERCENT AUTO 0 % (0-2); EOSINOPHILS ABSOLUTE AUTO 0.09 K/mm3 (0.00-0.68); EOSINOPHILS PERCENT AUTO 1 % (0-6); Hematocrit 23.5 % (37.0-53.0); Hemoglobin 8.3 g/dL (13.5-17.5); IMMATURE GRAN ABSOLUTE AUTO 0.03 K/mm3 (0.00-0.10); IMMATURE GRAN PERCENT AUTO 0 % (0-1); LYMPHOCYTES ABSOLUTE AUTO 1.46 K/mm3 (0.84-5.20); LYMPHOCYTES PERCENT AUTO 15 % (21-46); MONOCYTES ABSOLUTE AUTO 0.71 K/mm3 (0.16-1.47); MONOCYTES PERCENT AUTO 7 % (4-13); Mean Corpuscular HGB Conc 35.3 g/dL (31.5-36.5); Mean Corpuscular Volume 91 fL (80-100); Mean Platelet Volume 10.8 fL (9.1-12.4); NEUTROPHILS ABSOLUTE AUTO 7.78 K/mm3 (1.96-9.15); NEUTROPHILS PERCENT AUTO 77 % (41-73); Platelet Count 219 K/mm3 (150-400); RDW Standard Deviation 45.7 fL (35.1-46.3); Red Blood Cell Count 2.59 M/mm3 (4.30-5.90)
[2021-06-24 05:37] LABS: Albumin, Blood 1.8 g/dL (3.4-5.0); Albumin/Globulin Ratio 0.5 (0.8-1.8); Bilirubin, Total 0.4 mg/dL (0.1-1.0); Bun/Creatinine Ratio 6.1 (12.0-20.0); Calcium, Blood 7.9 mg/dL (8.5-10.1); Creatinine, Blood 6.06 mg/dL (0.60-1.20); Globulin, Blood 3.5 g/dL (2.2-4.0); Magnesium, Blood 1.6 mg/dL (1.6-2.4); Potassium, Blood 4.1 mmol/L (3.5-5.5); Total Protein, Blood 5.3 g/dL (6.4-8.2)
--- NOTE | 2021-06-24 11:56 | NUR ---
PT SLEEPY BUT OREINTED X4. OFF INSULIN GTT. HYPERTENSIVE THIS MORNING, AM MEDS GIVEN EFFECTIVE. O2 TITRATED TO 2L ON OXIMIZER THROUGHOUT MORNING. PT SPOUSE UPDATED VIA PHONE. DENIES PAIN.
--- NOTE | 2021-06-24 20:44 | NUR ---
PATIENT RESTING BUT WAKENS TO ORIENT. CYCLER STRUNG, PRIMED AND PROGRAMMED PER DR AREVALO'S ORDER. WHEN PRIME COMPLETE, PT AESEPTICALLY CONNECTED AND THERAPY STARTED. EXIT SITE CARE DONE. SITE DRY, TIGHT AND NON-TENDER. NEW STERILE DRESSING APPLIED WITH 2 STRAIN RELIEFS. ICU STAFF AWARE OF OVERNIGHT CCPD THERAPY IN PROGRESS.
--- NOTE | 2021-06-24 22:07 | NUR ---
ASSUMED CARE AT 1900 PT LAYING IN BED WATCHING TV AT CHANGE OF SHIFT. PT IS A&O X4 BUT LETHARGIC; KEEP SEYES CLOSED MOST OF THE TIME; DOES NOT ENGAGE IN CONVERSATION; JUST ANSWERS QUESTIONS. SPO2 >98% ON 2L OXYMIZER; PT C/O BEING SOB WITH SPO2 >98%, RT IN ROOM AND PROVIDED CPAP WITH SETTINGS AUTO 8-20 WITH 2L BLEED IN, PT STATES HELPFUL. VSS. PD OCCURING NOW. SEE SHIFT ASSESSMENT FOR FULL ASSESSMENT. 1999 HUMALOG NOT GIVEN DUE TO PT IN AT 1831 AND PROVIDED INSULIN BOLUS OF 3.4 UNITS VIA INSULIN PUMP; GLUCOSE AT THAT TIME 316; GLUCOSE NOW 291. WILL CHECK GLUCOSE AT MIDNIGHT.
[2021-06-25 03:35] LABS: BASOPHILS ABSOLUTE AUTO 0.02 K/mm3 (0.00-0.23); BASOPHILS PERCENT AUTO 0 % (0-2); EOSINOPHILS ABSOLUTE AUTO 0.43 K/mm3 (0.00-0.68); EOSINOPHILS PERCENT AUTO 7 % (0-6); Hematocrit 22.5 % (37.0-53.0); Hemoglobin 7.7 g/dL (13.5-17.5); IMMATURE GRAN ABSOLUTE AUTO 0.03 K/mm3 (0.00-0.10); IMMATURE GRAN PERCENT AUTO 1 % (0-1); LYMPHOCYTES ABSOLUTE AUTO 1.32 K/mm3 (0.84-5.20); LYMPHOCYTES PERCENT AUTO 21 % (21-46); MONOCYTES ABSOLUTE AUTO 0.88 K/mm3 (0.16-1.47); MONOCYTES PERCENT AUTO 14 % (4-13); Mean Corpuscular HGB 32.2 pg (26.0-34.0); Mean Corpuscular HGB Conc 34.2 g/dL (31.5-36.5); Mean Corpuscular Volume 94 fL (80-100); Mean Platelet Volume 11.2 fL (9.1-12.4); NEUTROPHILS PERCENT AUTO 58 % (41-73); Platelet Count 212 K/mm3 (150-400); RDW Coefficient Variation 14.6 % (11.7-14.2); RDW Standard Deviation 49.4 fL (35.1-46.3); Red Blood Cell Count 2.39 M/mm3 (4.30-5.90); White Blood Cell Count 6.38 K/mm3 (4.00-11.30)
[2021-06-25 04:01] LABS: Albumin, Blood 1.7 g/dL (3.4-5.0); Anion Gap 4 mmol/L (6-16); Blood Urea Nitrogen 42 mg/dL (8-24); Bun/Creatinine Ratio 6.1 (12.0-20.0); CO2, Blood 30 mmol/L (21-32); Chloride, Blood 100 mmol/L (98-108); Creatinine, Blood 6.84 mg/dL (0.60-1.20); Glomerular Filtration Rate 8 (60-); Glucose, Blood 414 mg/dL (70-99); Magnesium, Blood 1.4 mg/dL (1.6-2.4); Phosphorus, Blood 4.3 mg/dL (2.5-4.9); Potassium, Blood 3.9 mmol/L (3.5-5.5); Sodium, Blood 134 mmol/L (136-145); Troponin I 0.093 ng/mL (0.000-0.040)
--- NOTE | 2021-06-25 05:53 | NUR ---
END OF SHIFT SUMMARY NO ACUTE EVENTS OVERNIGHT. PT ABLE TO SLEEP SINCE 0000 AND WAKENS TO VERBAL STIMULI. CPAP ON ALL NIGHT, NO C/O SOB AND WAS MORE COMFORTABLE SLEEPING WITH MASK ON. SPO2 >98% WITH 2L BLEED IN. VITALS STABLE. PD OCCURED ALL NIGHT. GLUCOSE CHECKED Q4HR AND THAN PT WOULD PROGRAM INSLUIN PUMP TO GIVE A SPECIFIC AMOUNT OF INSULIN; SEE EMAR FOR INSLUIN GIVEN THIS WAY; PT DID NOT WANT HUMALOG ONTOP OF INSULIN PUMP AMOUNT. PT STATES THAT EVEN THOUGH "IT IS HIGH NOW (GLUCOSE), ONCE DIALYSIS IS OVER, MY GLUCOSE WILL DROP". WILL REPORT TO AM RN WHEN AVAILABLE.
--- NOTE | 2021-06-25 07:45 | NUR ---
DIALYSIS PD PT SLEEPING. WOKE EASILY. ID [id number] UF [id number]. EFFLUENT CLEAR. DCED PER PROTOCAL. MOVING PT TO SURGICAL FLOOR. MED STATUS.
--- NOTE | 2021-06-25 09:33 | NUR ---
AOx4, denies P/N/V, flat affect, frustated with hospital managment of pump and insulin, Pt uses own insulin pump and doses off our cbg readings, additional 5units SC humilin ordered to suppliment home pump, CBG this AM 332 down trending, VSS on RA, nitro paste to KLARISSA shoulder, LLQ PD port CDI, RLQ insulin pump CDI as well, lungs clear/dim, denies SOB, abdomen audible bowels non-tender, +2/+1 radial/dorsal pulses respectively, reprot given to Joe MONTEMAYOR and Pt transfered to RM 230.
--- NOTE | 2021-06-25 18:47 | NUR ---
PATIENTS BLOOD GLUCOSE BEFORE DINNER WAS 52. PATIENT ASYMPTOMATIC, APPLE JUICE, GRAHM CRACKERS GIVEN. PATIENT ATE FULL DINNER. RECHECKED WITH RESULT OF 102. INSULIN HELD.
--- NOTE | 2021-06-25 20:06 | NUR ---
DIALYSIS-PD DIALYSIS INITIATED AT 1930. PT SEEMS TO BE DEBATING PD VS HD. A & O. SITE CLEAR. SOLUTION CLEAR. TX STARTED AT 193. 2 X 2.5% DEXTROSE 6 L BAGS. TALKED TO RN AND GAVE HER MY NUMBER.
[2021-06-26 05:03] LABS: BASOPHILS ABSOLUTE AUTO 0.02 K/mm3 (0.00-0.23); BASOPHILS PERCENT AUTO 0 % (0-2); EOSINOPHILS ABSOLUTE AUTO 0.53 K/mm3 (0.00-0.68); EOSINOPHILS PERCENT AUTO 8 % (0-6); Hematocrit 23.3 % (37.0-53.0); Hemoglobin 8.1 g/dL (13.5-17.5); IMMATURE GRAN ABSOLUTE AUTO 0.04 K/mm3 (0.00-0.10); IMMATURE GRAN PERCENT AUTO 1 % (0-1); LYMPHOCYTES ABSOLUTE AUTO 1.45 K/mm3 (0.84-5.20); LYMPHOCYTES PERCENT AUTO 23 % (21-46); MONOCYTES ABSOLUTE AUTO 0.89 K/mm3 (0.16-1.47); MONOCYTES PERCENT AUTO 14 % (4-13); Mean Corpuscular HGB 32.7 pg (26.0-34.0); Mean Corpuscular HGB Conc 34.8 g/dL (31.5-36.5); Mean Corpuscular Volume 94 fL (80-100); Mean Platelet Volume 11.1 fL (9.1-12.4); NEUTROPHILS ABSOLUTE AUTO 3.37 K/mm3 (1.96-9.15); NEUTROPHILS PERCENT AUTO 54 % (41-73); Platelet Count 227 K/mm3 (150-400); RDW Coefficient Variation 14.5 % (11.7-14.2); Red Blood Cell Count 2.48 M/mm3 (4.30-5.90)
[2021-06-26 06:18] LABS: Albumin, Blood 1.6 g/dL (3.4-5.0); Anion Gap 5 mmol/L (6-16); Blood Urea Nitrogen 45 mg/dL (8-24); Bun/Creatinine Ratio 6.3 (12.0-20.0); CO2, Blood 29 mmol/L (21-32); Calcium, Blood 7.8 mg/dL (8.5-10.1); Chloride, Blood 99 mmol/L (98-108); Creatinine, Blood 7.12 mg/dL (0.60-1.20); Glomerular Filtration Rate 8 (60-); Glucose, Blood 314 mg/dL (70-99); Magnesium, Blood 1.5 mg/dL (1.6-2.4); Phosphorus, Blood 4.7 mg/dL (2.5-4.9); Potassium, Blood 3.8 mmol/L (3.5-5.5); Sodium, Blood 133 mmol/L (136-145)
--- NOTE | 2021-06-26 07:10 | NUR ---
LYING IN SEMI FOWLERS WITH EYES CLOSED RESTIN OFF AND ON. HAS BEEN PLEASANT AND COOPERATIVE WITH CARE. PD COMPLETED VIA MACINE. RIGHT CW ULDAL ACCESS IS REMAINS INTACT WITH DRESSING IN PLACE. PT IS LOOKING FOWARD TO GOING HOME TODAY. CBG'S Q 4HRS REMAIN ELEVATED, COVERAGE PER SS. INSULIN PUMP IN PLACE. DENIES FURTHER NEEDS OR WANTS AT THIS TIME. SAFETY MEASURES IN PLACE. WILL GIVE HAND OFF TO ONCOMING SHIFT USIING SBAR DURING BEDSIDE REPORT.
--- NOTE | 2021-06-26 08:49 | NUR ---
DIALYSIS-PD PT AWAKE AND ALERT. DCED TX PER PROTOCAL. ID [id number] UF [id number]. AFFLUENT CLEAR. SITE CLEAR. LEFT DRESSINGS FOR AFTER SHOWER. DR EARL IN THE ROOM.
--- NOTE | 2021-06-26 12:49 | NUR ---
PATIENT SITTING UP IN BED WITH NO SIGNS OR SYMPTOMS ACUTE DISTRESS NOTED. CALL LIGHT AND WATER IN EASY REACH. ABLE TO MAKE NEEDS AND WANTS KNOWN. PLACED ON CONTINOUS PULSE OX MONITOR PER PROTOCOL SINCE PATIENT IS ON CPAP AT HS. PATIENT GIVING SELF INSULIN VIA INSULIN PUMP. PATIENT COMPLAINED OF NAUSEA AFTER IV ANTIBIOTICS GIVEN THIS AM, MEDICATED FOR NAUSEA AT THAT TIME. MEDICATION WAS EFFECTIVE. WILL CONTINUE TO MONITOR.
[2021-06-26] MEDS ORDERED: ASPI81CH PO (14:06)
[2021-06-26] MEDS ORDERED: Acetaminophen325 M1 PO (14:06)
[2021-06-26] MEDS ORDERED: ONDA4 PO (14:07)
[2021-06-26] MEDS ORDERED: VISBIOME 112.51 EACH PO (14:08)
--- NOTE | 2021-06-26 14:38 | NUR ---
DISCHARGE: DISCHARGE INSTUCTIONS GIVEN TO PATIENT AT THIS TIME. PATIENT VERBALIZED UNDERSTANDING OF INSTRUCTIONS. NO SIGNS OR SYMPTOMS ACUTE DISTRESS NOTED AT THIS TIME. O2 SATS REMAINING 94-95% WILL STANDING AND SITTING AND BEING ACTIVE. WAS CONCERNED OF PATIENTS O2 SATS BEFORE GOING HOME. PATIENT INSTUCTED TO USED IS EVERY HOUR WHILE AWAKE. AWAITING TO GET HERE WITH CAR.
== END 2021-06-26 15:02 | disposition home or self-care (01) | DRG 673 ==
LOC: ER 09:36 → ICUW 13:46 → ICUE 13:46 → SURS 06-25 09:44
PROVIDERS: Nurse Practitioner Acute Care; Student in an Organized Health Care Education/Training Program; ADMIT Family Medicine
PROC: 0JH63XZ Insertion of Tunneled Vascular Access Device into Chest Subcutaneous Tissue and Fascia, Percutaneous Approach (ICD-10-PCS; principal; 2021-06-23)
PROC: 02HV33Z Insertion of Infusion Device into Superior Vena Cava, Percutaneous Approach (ICD-10-PCS; 2021-06-23)
PROC: 5A1D70Z Performance of Urinary Filtration, Intermittent, Less than 6 Hours Per Day (ICD-10-PCS; 2021-06-23)
DX: I12.0 Hypertensive chronic kidney disease with stage 5 chronic kidney disease or end stage renal disease (principal); N18.6 End stage renal disease; J96.01 Acute respiratory failure with hypoxia; J81.0 Acute pulmonary edema; I16.1 Hypertensive emergency; E87.70 Fluid overload, unspecified; Z20.822 Contact with and (suspected) exposure to COVID-19; E10.22 Type 1 diabetes mellitus with diabetic chronic kidney disease; F32.A Depression, unspecified; R77.8 Other specified abnormalities of plasma proteins; N40.0 Benign prostatic hyperplasia without lower urinary tract symptoms; E78.5 Hyperlipidemia, unspecified; E10.43 Type 1 diabetes mellitus with diabetic autonomic (poly)neuropathy; K31.84 Gastroparesis; D63.1 Anemia in chronic kidney disease; E10.65 Type 1 diabetes mellitus with hyperglycemia; Z98.890 Other specified postprocedural states; Z86.73 Personal history of transient ischemic attack (TIA), and cerebral infarction without residual deficits; Z87.891 Personal history of nicotine dependence
CPT/HCPCS: 0241U; 36415; 36558; 51701; 71045; 76937; 77001; 80053; 80069; 81001; 82010; 82803; 82947; 83605; 83735; 83880; 84132; 84145; 84443; 84484; 85025; 85610; 85730; 86140; 87040; 87086; 93005; 93010; 93306; 94660; 94762; 96365; 96368; 96375; 97162; 97530; 99285-25; A9270; C1750; J0360; J0456; J0696; J0881; J1644; J1815; J1940; J2405; J2765; J7030; J7040; J7050

== ENCOUNTER 2021-10-28 13:26 | Emergency (ER) | payer OTHER ==
[~2021-10-28] VITALS: Ht 185.4 cm; Wt 73.9 kg
[~2021-10-28 13:26] MED LIST changes: +ASPI81CH PO; +Prozac40 MG PO
[2021-10-28 14:26] LABS: BASOPHILS ABSOLUTE AUTO 0.02 K/mm3 (0.00-0.23); BASOPHILS PERCENT AUTO 0 % (0-2); EOSINOPHILS ABSOLUTE AUTO 0.22 K/mm3 (0.00-0.68); EOSINOPHILS PERCENT AUTO 3 % (0-6); Hematocrit 21.5 % (37.0-53.0); Hemoglobin 7.4 g/dL (13.5-17.5); IMMATURE GRAN ABSOLUTE AUTO 0.08 K/mm3 (0.00-0.10); IMMATURE GRAN PERCENT AUTO 1 % (0-1); LYMPHOCYTES ABSOLUTE AUTO 1.86 K/mm3 (0.84-5.20); LYMPHOCYTES PERCENT AUTO 28 % (21-46); MONOCYTES ABSOLUTE AUTO 0.93 K/mm3 (0.16-1.47); MONOCYTES PERCENT AUTO 14 % (4-13); Mean Corpuscular HGB 33.5 pg (26.0-34.0); Mean Corpuscular HGB Conc 34.4 g/dL (31.5-36.5); Mean Corpuscular Volume 97 fL (80-100); Mean Platelet Volume 10.1 fL (9.1-12.4); NEUTROPHILS PERCENT AUTO 53 % (41-73); NRBC ABSOLUTE 0.07 K/mm3 (0.00-0.02); NRBC Auto 1.1 /100 WBC (0.0-0.2); Platelet Count 268 K/mm3 (150-400); RDW Coefficient Variation 15.8 % (11.7-14.2); RDW Standard Deviation 52.3 fL (35.1-46.3); Red Blood Cell Count 2.21 M/mm3 (4.30-5.90); White Blood Cell Count 6.61 K/mm3 (4.00-11.30)
[2021-10-28 14:46] LABS: Bun/Creatinine Ratio 8.1 (12.0-20.0); Calcium, Blood 9.1 mg/dL (8.5-10.1); Creatinine, Blood 11.6 mg/dL (0.60-1.20); Potassium, Blood 3.8 mmol/L (3.5-5.5)
[2021-10-28] MEDS ORDERED: CALC.25 PO (15:13)
[2021-10-28] MEDS ORDERED: HYDCHL25 PO (15:14)
[2021-10-28] MEDS ORDERED: SEVELAMER (15:15)
[2021-10-28] MEDS ORDERED: LOSA25 PO (15:15)
== END 2021-10-28 19:10 | disposition home or self-care (01) ==
LOC: ER 13:26
PROVIDERS: Emergency Medicine
DX: I12.0 Hypertensive chronic kidney disease with stage 5 chronic kidney disease or end stage renal disease (principal); E10.22 Type 1 diabetes mellitus with diabetic chronic kidney disease; N18.6 End stage renal disease; D63.1 Anemia in chronic kidney disease; E10.42 Type 1 diabetes mellitus with diabetic polyneuropathy; E10.43 Type 1 diabetes mellitus with diabetic autonomic (poly)neuropathy; K31.84 Gastroparesis; Z99.2 Dependence on renal dialysis; Z86.73 Personal history of transient ischemic attack (TIA), and cerebral infarction without residual deficits; Z79.899 Other long term (current) drug therapy; Z79.4 Long term (current) use of insulin; Z79.82 Long term (current) use of aspirin
CPT/HCPCS: 36430; 71045; 80048; 85025; 86850; 86900; 86901; 86923; 99284-25; J7030; P9016